=== PATIENT | female | born 1970 | race African-American/Black ===

== ENCOUNTER 2018-05-28 09:35 | Emergency (ER) | payer BC, OTHER ==
[2018-05-28 09:52] VITALS: BP 152/92; PULSE 83; TEMP 99.1; BMI 37.3
--- NOTE | 2018-05-28 11:11 | PDOC ---
History of Present Illness - General Chief Complaint: Back Pain Stated Complaint: BACK PAIN Time Seen by Provider: 05/28/18 10:19 History Source: Patient Exam Limitations: Clinical Condition - History of Present Illness Initial Comments: 05/28/18 11:09 Patient with no significant past medication present with complaint of persistent lower back pain radiating to right lower groin area for 5 days now. Patient is seen multiple times in urgent care for symptoms and treated for UTI and back spasm per patient report symptoms of persistent. Patient ALLERGIC to NSAIDs and has been taking muscle relaxer and stopped because of making her drowsy. Patient was seen in urgent care and report lab work and urinalysis done and labs was normal . no imaging done in urgent care. Timing/Duration: other (5 days) Past History - Past Medical History Allergies/Adverse Reactions: Allergies Allergy/AdvReac Type Severity Reaction Status Date / Time NSAIDS (Non-Steroidal Allergy Severe Difficulty Verified 05/28/18 09:46 Anti-Inflamma Breathing [Nsaids] Home Medications: Ambulatory Orders Levothyroxine [Synthroid -] 175 mcg PO DAILY 08/16/14 Diazepam 2 mg PO HS PRN #5 tablet MDD 1 05/04/16 Docusate Sodium [Colace] 100 mg PO BID 10 Days #20 capsule 05/28/18 Lidocaine 5% Patch [Lidoderm -] 1 patch TP DAILY PRN #10 patch 05/28/18 Oxycodone HCl/Acetaminophen [Percocet 5-325 mg Tablet] 1 tab PO Q4H PRN #6 tablet MDD 3 05/28/18 Cancer: Yes (RT breast ca) COPD: No Thyroid Disease: Yes (hypo) - Immunization History Immunization Up to Date: Yes - Suicide/Smoking/Psychosocial Hx Smoking Status: Yes Smoking History: Never smoked Have you smoked in the past 12 months: Yes Number of Cigarettes Smoked Daily: 10 Hx Alcohol Use: No Drug/Substance Use Hx: No Substance Use Type: None Review of Systems - Review of Systems Able to Perform ROS?: Yes Is the patient limited Romansh proficient: No Constitutional: No: Chills, Fever, Malaise, Weakness HEENTM: No: Symptoms Reported Respiratory: No: Symptoms reported Cardiac (ROS): No: Symptoms Reported ABD/GI: No: Symptoms Reported, Nausea, Vomiting : No: Burning, Dysuria, Discharge, Frequency, Flank Pain, Urgency Musculoskeletal: Yes: Back Pain (diffused lower back radiating to right groin), Muscle Pain (diffused lower back) Neurological: No: Numbness, Paresthesia, Tingling All Other Systems: Reviewed and Negative *Physical Exam - Vital Signs Last Vital Signs Temp Pulse Resp BP Pulse Ox 99.1 F 83 16 152/92 98 05/28/18 09:47 05/28/18 09:47 05/28/18 09:47 05/28/18 09:47 05/28/18 09:47 - Physical Exam Comments: 05/28/18 11:06 GENERAL: Well developed, well nourished. Awake and alert. No acute distress. CARDIOVASCULAR: Regular rate and rhythm. No murmurs, rubs, or gallops. PULMONARY: No evidence of respiratory distress. Lungs clear to auscultation bilaterally. No wheezing, rales or rhonchi. ABDOMINAL: Soft. Non-tender. Non-distended. No rebound or guarding. No organomegaly. Normoactive bowel sounds MUSCULOSKELETAL : moderate tenderness over posterior paravertebral muscle of lumbaosacral spine of L4-S2 on bilateral sides. No bony deformities EXTREMITIES: No cyanosis. No clubbing. No edema. No calf tenderness. SKIN: Warm and dry. Normal capillary refill. No rashes. No jaundice. NEUROLOGICAL: Alert, awake, appropriate. No motor deficits in the lower extremities. Gait is normal without ataxia. PSYCHIATRIC: Cooperative. Good eye contact. Appropriate mood and affect. General Appearance: Yes: Nourished, Appropriately Dressed. No: Apparent Distress Moderate Sedation - Procedure Monitoring Vital Signs: Procedure Monitoring Vital Signs Temperature 99.1 F 05/28/18 09:47 Pulse Rate 83 05/28/18 09:47 Respiratory Rate 16 05/28/18 09:47 Blood Pressure 152/92 05/28/18 09:47 O2 Sat by Pulse Oximetry (%) 98 05/28/18 09:47 ED Treatment Course - RADIOLOGY Radiology Studies Ordered: Category Date Time Status SPINE-LUMBAR SACRAL [RAD] Stat Radiology 05/28/18 10:27 Taken Medical Decision Making - Medical Decision Making 05/28/18 11:07 Patient with no significant past medication present with complaint of persistent lower back pain radiating to right lower groin area for 5 days now. Patient is seen multiple times in urgent care for symptoms and treated for UTI and back spasm per patient report symptoms of persistent. Patient ALLERGIC to NSAIDs and has been taking muscle relaxer and stopped because of making her drowsy. Exam significant for moderate diffuse tenderness over lower lumbar spine sacral area. Symptoms is likely back spasm with sciatica. X-ray of lumbosacral ordered. Treat based on imaging results 05/28/18 11:17 x-ray of lumbosacral shows no acute pathology except pelvic fecalith. pt staple for discharge on Percocet, lidocaine patchy and heat therapy with orthopedics follow-up *DC/Admit/Observation/Transfer Diagnosis at time of Disposition: Lumbago Qualifiers: Chronicity: acute Back pain laterality: bilateral Sciatica presence: without sciatica Qualified Code(s): M54.5 - Low back pain Constipated Qualifiers: Constipation type: unspecified constipation type Qualified Code(s): K59.00 - Constipation, unspecified - Discharge Dispostion Disposition: HOME Condition at time of disposition: Stable Decision to Admit order: No - Prescriptions Prescriptions: Docusate Sodium [Colace] 100 mg PO BID 10 Days #20 capsule Lidocaine 5% Patch [Lidoderm -] 1 patch TP DAILY PRN #10 patch PRN Reason: Back Pain Oxycodone HCl/Acetaminophen [Percocet 5-325 mg Tablet] 1 tab PO Q4H PRN #6 tablet MDD 3 PRN Reason: severe back pain - Referrals Referrals: Lilian Alvarado MD [Primary Care Provider] - Colton Castellano MD [Staff Physician] - - Patient Instructions Printed Discharge Instructions: Back Pain (Alternative Therapy), Low Back Pain Additional Instructions: take medications as prescribed. apply heat therapy to lower back 2-3times/day for 5-10mins as needed for pain. follow-up with referred orthopedics if symptoms persists for more than 3 days for possible MRI - Post Discharge Activity Forms/Work/School Notes: Back to Work
== END 2018-05-28 11:34 | disposition home or self-care (01) ==
LOC: JERFT 09:35
DX: M54.5 Low back pain (principal); K59.00 Constipation, unspecified
CPT/HCPCS: 72100-TC-FY; 99281-25

== ENCOUNTER 2020-02-04 13:50 | Inpatient (IN) | payer BC ==
--- NOTE | 2020-02-04 14:28 | PDOC ---
History of Present Illness - General Chief Complaint: Headache Stated Complaint: NUMBNESS ON LEFT SIDE Time Seen by Provider: 02/04/20 14:19 History Source: Patient - History of Present Illness Initial Comments: 02/04/20 15:04 49F w/hx hypothyroidism, remote hx migraine headaches, breast cancer s/p ubaldo lamb p/w acute onset headache at base of head. She reports that the pain started while sitting working on her iPad when the pain began. She reports "starting to breath quickly" when she began to experience perioral numbness (now resolved). She reports that the pain is different that her previous migraines, described as a tightness in the base of her skull. She reports a pressure in the back of her head, alongside feeling as though she cannot find her balance despite standing still. She reports feeling as though she is leaning to the right. She denies any fevers, chills, vision changes, confusion, weakness. Past History - Medical History Allergies/Adverse Reactions: Allergies Allergy/AdvReac Type Severity Reaction Status Date / Time NSAIDS (Non-Steroidal Allergy Severe Difficulty Verified 02/04/20 14:00 Anti-Inflamma Breathing [Nsaids] Home Medications: Ambulatory Orders Levothyroxine [Synthroid -] 175 mcg PO DAILY 08/16/14 Cancer: Yes (RT breast ca) COPD: No Thyroid Disease: Yes (hypo) - Reproductive History Is Patient Now?: No - Immunization History Immunization Up to Date: Yes - Psycho-Social/Smoking History Smoking Status: Yes Smoking History: Never smoked Have you smoked in the past 12 months: Yes Number of Cigarettes Smoked Daily: 10 - Substance Abuse Hx (Audit-C & DAST Scrn) How often the patient has a drink containing alcohol: Never Score: In Men: 4 or > Positive; In Women: 3 or > Positive: 0 Screen Result (Pos requires Nsg. Audit-10AR): Negative Review of Systems - Review of Systems Able to Perform ROS?: Yes Comments:: 02/04/20 15:32 GENERAL/CONSTITUTIONAL: No fever or chills. No weakness. HEAD, EYES, EARS, NOSE AND THROAT: No change in vision. No ear pain or discharge. No sore throat. CARDIOVASCULAR: No chest pain or shortness of breath RESPIRATORY: No cough, wheezing, or hemoptysis. GASTROINTESTINAL: No nausea, vomiting, diarrhea or constipation. GENITOURINARY: No dysuria, frequency, or change in urination. MUSCULOSKELETAL: No joint or muscle swelling or pain. No neck or back pain. SKIN: No rash NEUROLOGIC: Headache. No vertigo, loss of consciousness, or change in strengt h/sensation. ENDOCRINE: No increased thirst. No abnormal weight change HEMATOLOGIC/LYMPHATIC: No anemia, easy bleeding, or history of blood clots. ALLERGIC/IMMUNOLOGIC: No hives or skin allergy. *Physical Exam - Vital Signs Last Vital Signs Temp Pulse Resp BP Pulse Ox 97.9 F 65 18 144/87 96 02/04/20 14:01 02/04/20 14:01 02/04/20 14:02/04/20 14:02/04/20 14:01 - Physical Exam 02/04/20 15:32 GENERAL: Awake, alert, and fully oriented, in no acute distress HEAD: No signs of trauma, normocephalic, atraumatic EYES: PERRLA, EOMI, sclera anicteric, conjunctiva clear ENT: Auricles normal inspection, hearing grossly normal, nares patent, oropharynx clear without exudates. Moist mucosa NECK: Normal ROM, supple, no lymphadenopathy, JVD, or masses LUNGS: No distress, speaks full sentences, clear to auscultation bilaterally HEART: Regular rate and rhythm, normal S1 and S2, no murmurs, rubs or gallops, peripheral pulses normal and equal bilaterally. ABDOMEN: Soft, nontender, normoactive bowel sounds. No guarding, no rebound. No masses EXTREMITIES : Normal inspection, Normal range of motion, no edema. No clubbing or cyanosis NEUROLOGICAL: Cranial nerves II through XII grossly intact. Normal speech, normal gait, no focal sensorimotor deficits SKIN: Warm, Dry, normal turgor, no rashes or lesions noted ED Treatment Course - LABORATORY CBC & Chemistry Diagram: 02/04/20 15:50 02/04/20 15:50 Medical Decision Making - Medical Decision Making 02/04/20 15:33 49F w/hx hypothyroidism, prior breast CA s/p masectomy, previous migraines p/w acute onset occipital headache without vision changes, cranial nerve, strength, or sensory deficits. CVA unlikely, although headache is change from previous pattern. Perioral numbness likley secondary to hyperventillation. Plan: CT Head CBC CMP Troponin EKG CXR 1L NS 1g acetaminophen IV Dispo: Pending imaging, reassessment 02/04/20 19:[address] Saenz. Plan for CTA head, if negative but patient has persistent symptoms then plan for admission for neuro eval, MRI/MRA. Discharge - Discharge Information Problems reviewed: Yes Clinical Impression/Diagnosis: Ataxia - Follow up/Referral - Patient Discharge Instructions - Post Discharge Activity
[2020-02-04] MEDS ORDERED: ACETAMINOPHEN 1000 MG/100 ML VIAL (NON FORMULARY) IVPB ONE (14:46)
[2020-02-04] MEDS ORDERED: SODIUM CHLORIDE 1,000 ML IV STA (14:46)
[2020-02-04] MEDS ORDERED: ACETAMINOPHEN INJECTION 100 ML IVPB ONE (15:19)
[2020-02-04 16:04] LABS: HEMATOCRIT 37.2 % (32.4-45.2); HEMOGLOBIN 12.3 GM/dL (10.7-15.3); LYMPH % 28.6 % (8-40); MCH 28.9 pg (25.7-33.7); MEAN CELL VOLUME 87.6 fl (80-96); MEAN PLT VOLUME 8.4 fl (7.5-11.1); MONO % 4.8 % (3.8-10.2); NEUT % 60.6 % (42.8-82.8); PLATELET COUNT 238 K/MM3 (134-434); RBC 4.25 M/mm3 (3.60-5.2); RDW 17.4 % (11.6-15.6); WHITE BLOOD COUNT 5.5 K/mm3 (4.0-10.0)
--- NOTE | 2020-02-04 16:23 | PDOC ---
Documentation entered by Kate Joyner SCRIBE, acting as scribe for Ivy Hugo MD. Ivy Hugo MD: This documentation has been prepared by the jem, Kate Moscoso SCRIBE, under my direction and personally reviewed by me in its entirety. I confirm that the documentation accurately reflects all work, treatment, procedures, and medical decision making performed by me. Attending Attestation - Resident Resident Name: Dontae Barnhart - ED Attending Attestation I have performed the following: I have examined & evaluated the patient, The case was reviewed & discussed with the resident, I agree w/resident's findings & plan, Exceptions are as noted - HPI HPI: 02/04/20 15:23 The patient is a 49 year old female with a significant PMH of hypothyroidism, remote hx migraine headaches, breast cancer s/p masectomy who presents to the emergency department for evaluation of an abrupt onset of pressure at base of head. Associated with perioral numbness, sensation that she is having difficulty moving her jaw, feeling of weakness. The numbness has resolved. She states she has had intermittent sensation as if she is off balance, gait drifts to the right. She has had migraines in the past, but states they were completely different. She states that her migraines were associated with pain, photophobia, and phonophobia, none of which she has today. Allergies: NKA Social history: No reported hx of tobacco use, alcohol use or illicit drug use. PCP: Jenny - Physicial Exam PE: GENERAL: Awake, alert, and fully oriented, in no acute distress HEAD: No signs of trauma EYES: PERRLA, EOMI, sclera anicteric, conjunctiva clear ENT: Auricles normal inspection, hearing grossly normal, nares patent, oropharynx clear without exudates. Moist mucosa NECK: Normal ROM, supple, no lymphadenopathy, JVD, or masses LUNGS: Breath sounds equal, clear to auscultation bilaterally. No wheezes, and no crackles HEART: Regular rate and rhythm, normal S1 and S2, no murmurs, rubs or gallops ABDOMEN: Soft, nontender, normoactive bowel sounds. No guarding, no rebound. No masses EXTREMITIES: Normal range of motion, no edema. No clubbing or cyanosis. No cor ds, erythema, or tenderness NEUROLOGICAL: Cranial nerves II through XII grossly intact. Normal speech, normal gait. Motor and sensation intact SKIN: Warm, dry, normal turgor, no rashes or lesions noted. - Medical Decision Making 02/04/20 16:34 Pt with abrupt onset occipital pressure associated with perioral numbness, vertiginous symptoms. Will d/w neuro, will consider CTA head vs MRI to evaluate posterior circulation. Discharge - Discharge Information Problems reviewed: Yes Clinical Impression/Diagnosis: Ataxia Condition: Stable Disposition: HOME - Follow up/Referral - Patient Discharge Instructions - Post Discharge Activity
[2020-02-04 16:45] LABS: ALBUMIN 3.7 g/dl (3.4-5.0); ALK PHOS 101 U/L (45-117); ANION GAP 6 MMOL/L (8-16); BILIRUBIN,TOTAL 0.2 mg/dL (0.2-1); CALCIUM 8.7 mg/dL (8.5-10.1); CHLORIDE 109 mmol/L (98-107); CO2 26 mmol/L (21-32); CREATININE 0.9 mg/dL (0.55-1.3); GLUCOSE,RANDOM 85 mg/dL (74-106); POTASSIUM 3.9 mmol/L (3.5-5.1); SGOT/AST 15 U/L (15-37); SGPT/ALT 16 U/L (13-61); SODIUM 141 mmol/L (136-145); TOT PROT 7.4 g/dl (6.4-8.2)
--- NOTE | 2020-02-04 18:10 | CON.NEURO ---
Consult - Past Medical History ...LMP: 01/27/08 ...: No - Alcohol/Substance Use Hx Alcohol Use: No - Smoking History Smoking history: Never smoked Have you smoked in the past 12 months: Yes Aproximately how many cigarettes per day: 10 Home Medications - Allergies Allergies/Adverse Reactions: Allergies Allergy/AdvReac Type Severity Reaction Status Date / Time NSAIDS (Non-Steroidal Allergy Severe Difficulty Verified 02/04/20 14:00 Anti-Inflamma Breathing [Nsaids] - Home Medications Home Medications: Ambulatory Orders Levothyroxine [Synthroid -] 175 mcg PO DAILY 08/16/14 Physical Exam-Neuro Vital Signs: Vital Signs Temperature 97.9 F 02/04/20 14:01 Pulse Rate 65 02/04/20 14:01 Respiratory Rate 18 02/04/20 14:01 Blood Pressure 144/87 02/04/20 14:01 O2 Sat by Pulse Oximetry (%) 96 02/04/20 14:01 Labs: CBC, BMP 02/04/20 15:50 02/04/20 15:50 Assessment/Plan cc Acute pressure like sensation in back of her head HPI 49 year old female history of hypothyroidism , breast cancer , under remission. She has diagnosis of Pseudo tumor cerebri, but not being treated. years ago, she has migraine bu tnot recenlty. Today she came with pressure and sometihing constricting sesation in back of her head. She slept well, denies missing marj, stress or fever or trauma. There is no focal neurological syptoms PMH as above Allergies/Adverse Reactions: Allergies Allergy/AdvReac Type Severity Reaction Status Date / Time NSAIDS (Non-Steroidal Allergy Severe Difficulty Verified 02/04/20 14:00 Anti-Inflamma Breathing [Nsaids] Home Medications: Levothyroxine [Synthroid -] 175 mcg PO DAILY 08/16/14 ROS,FH,SH reviewed in chart NEUROLOGICAL EXAMINATION Alert oriented x 3, afebrile , neck is suple vss eomi, pupils reactive no face asymmetry, face sensation is normal, vf normal by confrontation motor 5/5 all ext sensation is normal reflex are normal fts, hts normal ct head is normal for acute findings, there is nonspecific volume loss in occipital area Assessment/Plan acute tension headhace, describes pressure like sensation. normal neuro exam, no evidence of nekc stiffness, unlikley to be sah or meningitis Plan: give nsaid, benadyrl and reglan iv once - cta is being planned, if normal, can be discharged home - follow up optho regarding ? pseudotumor cerebri - follow up with neurologist Thanking you so much Gerry Saenz MD
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
--- NOTE | 2020-02-04 20:06 | HP ---
CHIEF COMPLAINT: Posterior Cranial pressure PCP: Lilian de dios [facility] HISTORY OF PRESENT ILLNESS: Ms. Qiu is a 49F w/ pmh of hypothyroidism, remote hx migraine headaches, breast cancer s/p masectomy complete reaction, chemotherapy 2007, spinal tap last year, felt relief after spinal. Pseudo tumor cerebri (untreated) who presents to the emergency department for evaluation of an abrupt onset of pressure at base of head. The patient reported a sudden onset of squeezing posterior head pressure while doing dishes. The patient reports concomitant feeling of being unbalance. The patient adamantly denies the room spinning or weakness. Symptoms first started few months ago and the episodes would usually last about 15-20 min. The patient has also felt her lower face going numb, as if someone tried closing her mouth. The patient denied changes or slurring of speech. The patient also denied weakness in upper/lower extremities. Ms. Qiu had recieved a lumbar puncture for her pseudotumor cerebri. The patient reports being given Topirimate 25, but has not been compliant x1 month despite advice by Neurologist(Shirley). 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 Allergies NSAIDS (Non-Steroidal Anti-Inflamma [Nsaids] Allergy (Severe, Verified 02/04/20 14:00) Difficulty Breathing HOME MEDICATIONS: Home Medications Medication Instructions Recorded Levothyroxine [Synthroid -] 175 mcg PO DAILY 08/16/14 REVIEW OF SYSTEMS CONSTITUTIONAL: Absent: fever, chills, diaphoresis, generalized weakness, malaise, loss of appetite, weight change HEENT: Absent: rhinorrhea, nasal congestion, throat pain, throat swelling, difficulty swallowing, mouth swelling, ear pain, eye pain, visual changes CARDIOVASCULAR: Absent: chest pain, syncope, palpitations, irregular heart rate, lightheadedness, peripheral edema RESPIRATORY: Absent: cough, shortness of breath, dyspnea with exertion, orthopnea, wheezing, stridor, hemoptysis GASTROINTESTINAL: Absent: abdominal pain, abdominal distension, nausea, vomiting, diarrhea, constipation, melena, hematochezia NEUROLOGIC: Absent: headache, focal weakness or paresthesias, dizziness, unsteady gait, seizure, mental status changes, bladder or bowel incontinence PHYSICAL EXAMINATION Vital Signs - 24 hr 02/04/20 14:01 Temperature 97.9 F Pulse Rate 65 Respiratory 18 Rate Blood Pressure 144/87 O2 Sat by Pulse 96 Oximetry (%) GENERAL: Awake, alert, and fully oriented, in no acute distress. EYES: Pupils equal, round and reactive to light, extraocular movements intact, sclera anicteric, conjunctiva clear. No lid lag. NECK: Normal range of motion, supple without lymphadenopathy, JVD, or masses. LUNGS: Breath sounds equal, clear to auscultation bilaterally. No wheezes, and no crackles. No accessory muscle use. HEART: Regular rate and rhythm, normal S1 and S2 without murmur, rub or gallop. ABDOMEN: Soft, nontender, not distended, normoactive bowel sounds, no guarding, no rebound, no masses. No hepatomegaly or splenomegaly. MUSCULOSKELETAL: Normal range of motion at all joints. No bony deformities or tenderness. No CVA tenderness. UPPER EXTREMITIES: 2+ pulses, warm, well-perfused. No cyanosis. No clubbing. No peripheral edema. LOWER EXTREMITIES: 2+ pulses, warm, well-perfused. No calf tenderness. No peripheral edema. NEUROLOGICAL: Cranial nerves II-XII intact. Normal speech. Normal gait. Laboratory Results - last 24 hr 02/04/20 02/04/20 02/04/20 15:50 15:50 15:50 WBC 5.5 RBC 4.25 Hgb 12.3 Hct 37.2 MCV 87.6 MCH 28.9 MCHC 33.0 RDW 17.4 H Plt Count 238 MPV 8.4 Absolute Neuts (auto) 3.3 Neutrophils % 60.6 Lymphocytes % 28.6 Monocytes % 4.8 Eosinophils % 5.0 H Basophils % 1.0 D Nucleated RBC % 0 Sodium 141 Potassium 3.9 Chloride 109 H Carbon Dioxide 26 Anion Gap 6 L BUN 9.0 Creatinine 0.9 Est GFR (CKD-EPI)AfAm 86.41 Est GFR (CKD-EPI)NonAf 74.55 Random Glucose 85 Calcium 8.7 Total Bilirubin 0.2 AST 15 ALT 16 Alkaline Phosphatase 101 Troponin I < 0.02 Total Protein 7.4 Albumin 3.7 Serum , Qual Negative ASSESSMENT/PLAN: Ms. Qiu is a 49F w/ pmh of hypothyroidism, remote hx migraine headaches, breast cancer s/p masectomy complete reaction, chemotherapy 2007, spinal tap last year, felt relief after spinal. Pseudo tumor cerebri (untreated) who presents to the emergency department for evaluation of an abrupt onset of pressure at base of head. # Advanced migraine - admit to telemetry - po tylenol - vitals q12 - follow labs - ekg - sinus gregg 55 - Utox - cxr - ua #ataxia - fall risk - ct scan - negative for acute pathology - Incidental finding of pulmonary artery #hypothyroidism - synthroid 175mcg #DVT ppx - lovenox 40 sq ATTENDING PHYSICIAN STATEMENT I saw and evaluated the patient. I reviewed the resident's note and discussed the case with the resident. I agree with the resident's findings and plan as documented. SUBJECTIVE: OBJECTIVE: ASSESSMENT AND PLAN:
[2020-02-04] MEDS ORDERED: ACETAMINOPHEN 325 MG TABLET (FP) PO PRN (22:02)
[2020-02-05 01:45] LABS: URINE APPEARANCE Clear; URINE BILIRUBIN Negative (NEGATIVE); URINE COLOR Yellow; URINE GLUCOSE (UA) Negative (NEGATIVE); URINE KETONE Negative (NEGATIVE); URINE LEUK ESTERASE 1+ (NEGATIVE); URINE NITRITE Negative (NEGATIVE); URINE PROTEIN Negative (NEGATIVE); URINE UROBILINOGEN 0.2 mg/dL (0.2-1.0)
[2020-02-05 01:52] LABS: COCAINE, UR NEGATIVE ng/ml (CUTOFF=300); OPIATES, URI NEGATIVE ng/ml (CUTOFF=300); PHENCYCLIDINE,URINE NEGATIVE ng/ml (CUTOFF=25); URINE BARBITURATES NEGATIVE ng/ml (CUTOFF=200)
[2020-02-05 01:59] LABS: METHADONE, UR NEGATIVE ng/ml (CUTOFF=300); URINE AMPHETAMINES NEGATIVE ng/ml (CUTOFF=500); URINE BENZODIAZEPINES NEGATIVE ng/ml (CUTOFF=200)
[2020-02-05 02:39] LABS: EPI CELLS MODERATE /uL (0-25.1)
[2020-02-05 03:18] VITALS: BMI 36.7
[2020-02-05] MEDS ORDERED: LEVOTHYROXINE NA 75 MCG TABLET (FP) ONE (05:19)
[2020-02-05] MEDS ORDERED: LEVOTHYROXINE NA 100 MCG TABLET (FP) ONE (05:19)
[2020-02-05 06:29] LABS: BASO % 1.1 % (0-2.0); EOS % 6.2 % (0-4.5); HEMATOCRIT 36.8 % (32.4-45.2); HEMOGLOBIN 12.3 GM/dL (10.7-15.3); LYMPH % 43.4 % (8-40); MCH 29.1 pg (25.7-33.7); MCHC 33.5 g/dl (32.0-36.0); MEAN CELL VOLUME 86.7 fl (80-96); MEAN PLT VOLUME 8.6 fl (7.5-11.1); MONO % 5.9 % (3.8-10.2); NEUT % 43.4 % (42.8-82.8); PLATELET COUNT 247 K/MM3 (134-434); RBC 4.25 M/mm3 (3.60-5.2); RDW 17.4 % (11.6-15.6); WHITE BLOOD COUNT 5.6 K/mm3 (4.0-10.0)
[2020-02-05 07:00] LABS: ALBUMIN 3.7 g/dl (3.4-5.0); BILIRUBIN,TOTAL 0.4 mg/dL (0.2-1); BLOOD UREA NITROGEN 7.5 mg/dL (7-18); CALCIUM 8.6 mg/dL (8.5-10.1); CREATININE 0.9 mg/dL (0.55-1.3); MAGNESIUM 2.3 mg/dL (1.8-2.4); PHOSPHOROUS 3.6 mg/dL (2.5-4.9); POTASSIUM 3.6 mmol/L (3.5-5.1); TOT PROT 7.3 g/dl (6.4-8.2)
[2020-02-05] MEDS ORDERED: LEVOTHYROXINE 100 MCG, LEVOTHYROXINE 75 MCG PO SCH (07:00)
[2020-02-05] MEDS ORDERED: LEVOTHYROXINE NA 150 MCG TABLET PO SCH (10:00)
[2020-02-05] MEDS ORDERED: ENOXAPARIN NA (PORCINE) 40 MG/0.4 ML DISP.SYRIN SQ SCH (10:00)
[2020-02-05 10:32] VITALS: BP 139/80; PULSE 66; TEMP 97.6
--- NOTE | 2020-02-05 10:45 | PN ---
Physical Exam: SUBJECTIVE: Patient seen and examined at bedside. The patient reports a mild headache. The back of her neck is painful to palpation. The patient denies dysuria, bowel/bladder problems, fever/chills, vision changes, weakness, or numbness. OBJECTIVE: Vital Signs Period Temp Pulse Resp BP Sys/Barrett Pulse Ox Last 24 Hr 97.6 F-98.2 F 59-90 17-20 126-158/70-95 95-100 GENERAL: The patient is awake, alert, and fully oriented, in no acute distress. HEAD: Normal with no signs of trauma. EYES: PERRL, extraocular movements intact, sclera anicteric, conjunctiva clear. No ptosis. ENT: Ears normal, nares patent, oropharynx clear without exudates, moist mucous membranes. Palpation of based of head/cervical spine elicits pain. NECK: Trachea midline, full range of motion, supple. LUNGS: Breath sounds equal, clear to auscultation bilaterally, no wheezes, no crackles, no accessory muscle use. HEART: Regular rate and rhythm, S1, S2 without murmur, rub or gallop. ABDOMEN: Soft, nontender, nondistended, normoactive bowel sounds, no guarding, no rebound, no masses. EXTREMITIES: 2+ pulses, warm, well-perfused, no edema. NEUROLOGICAL: Cranial nerves II through XII grossly intact. Normal speech, gait not observed. finger nose finger test negative. No tremors. Muscle strength 5/5 b/l UEs and LEs. No numbness in face, UEs, or LEs b/l. PSYCH: Normal mood, normal affect. SKIN: Warm, dry, normal turgor, no rashes or lesions noted Laboratory Results - last 24 hr 02/04/20 02/04/20 02/04/20 15:50 15:50 15:50 WBC 5.5 RBC 4.25 Hgb 12.3 Hct 37.2 MCV 87.6 MCH 28.9 MCHC 33.0 RDW 17.4 H Plt Count 238 MPV 8.4 Absolute Neuts (auto) 3.3 Neutrophils % 60.6 Lymphocytes % 28.6 Monocytes % 4.8 Eosinophils % 5.0 H Basophils % 1.0 D Nucleated RBC % 0 Sodium 141 Potassium 3.9 Chloride 109 H Carbon Dioxide 26 Anion Gap 6 L BUN 9.0 Creatinine 0.9 Est GFR (CKD-EPI)AfAm 86.41 Est GFR (CKD-EPI)NonAf 74.55 Random Glucose 85 Calcium 8.7 Phosphorus Magnesium Total Bilirubin 0.2 AST 15 ALT 16 Alkaline Phosphatase 101 Troponin I < 0.02 Total Protein 7.4 Albumin 3.7 Serum , Qual Negative Urine Color Urine Appearance Urine pH Ur Specific [place] Urine Protein Urine Glucose (UA) Urine Ketones Urine Blood Urine Nitrite Urine Bilirubin Urine Urobilinogen Ur Leukocyte Esterase Urine WBC (Auto) U Epithel Cells (Auto) Opiates Screen Methadone Screen Barbiturate Screen Phencyclidine Screen Ur Amphetamines Screen MDMA (Ecstasy) Screen Benzodiazepines Screen Cocaine Screen U Marijuana (THC) Screen 02/05/20 02/05/20 02/05/20 01:25 01:25 05:15 WBC 5.6 RBC 4.25 Hgb 12.3 Hct 36.8 MCV 86.7 MCH 29.1 MCHC 33.5 RDW 17.4 H Plt Count 247 MPV 8.6 Absolute Neuts (auto) 2.4 Neutrophils % 43.4 D Lymphocytes % 43.4 H D Monocytes % 5.9 Eosinophils % 6.2 H Basophils % 1.1 Nucleated RBC % 0 Sodium Potassium Chloride Carbon Dioxide Anion Gap BUN Creatinine Est GFR (CKD-EPI)AfAm Est GFR (CKD-EPI)NonAf Random Glucose Calcium Phosphorus Magnesium Total Bilirubin AST ALT Alkaline Phosphatase Troponin I Total Protein Albumin Serum , Qual Urine Color Yellow Urine Appearance Clear Urine pH 7.0 Ur Specific [place] 1.020 Urine Protein Negative Urine Glucose (UA) Negative Urine Ketones Negative Urine Blood Negative Urine Nitrite Negative Urine Bilirubin Negative Urine Urobilinogen 0.2 Ur Leukocyte Esterase 1+ H Urine WBC (Auto) 6-10 U Epithel Cells (Auto) Moderate Opiates Screen Negative Methadone Screen Negative Barbiturate Screen Negative Phencyclidine Screen Negative Ur Amphetamines Screen Negative MDMA (Ecstasy) Screen Negative Benzodiazepines Screen Negative Cocaine Screen Negative U Marijuana (THC) Screen Negative 02/05/20 05:15 WBC RBC Hgb Hct MCV MCH MCHC RDW Plt Count MPV Absolute Neuts (auto) Neutrophils % Lymphocytes % Monocytes % Eosinophils % Basophils % Nucleated RBC % Sodium 139 Potassium 3.6 Chloride 108 H Carbon Dioxide 26 Anion Gap 5 L BUN 7.5 Creatinine 0.9 Est GFR (CKD-EPI)AfAm 86.41 Est GFR (CKD-EPI)NonAf 74.55 Random Glucose 86 Calcium 8.6 Phosphorus 3.6 Magnesium 2.3 Total Bilirubin 0.4 AST 14 L ALT 16 Alkaline Phosphatase 89 Troponin I Total Protein 7.3 Albumin 3.7 Serum , Qual Urine Color Urine Appearance Urine pH Ur Specific [place] Urine Protein Urine Glucose (UA) Urine Ketones Urine Blood Urine Nitrite Urine Bilirubin Urine Urobilinogen Ur Leukocyte Esterase Urine WBC (Auto) U Epithel Cells (Auto) Opiates Screen Methadone Screen Barbiturate Screen Phencyclidine Screen Ur Amphetamines Screen MDMA (Ecstasy) Screen Benzodiazepines Screen Cocaine Screen U Marijuana (THC) Screen Active Medications Generic Name Dose Route Start Last Admin Trade Name Freq PRN Reason Stop Dose Admin Acetaminophen 650 mg 02/04/20 22:02 02/05/20 06:00 Tylenol - PO 650 mg Q6H PRN Administration HEADACHE Enoxaparin Sodium 40 mg 02/05/20 10:00 02/05/20 09:34 Lovenox - SQ 40 mg DAILY MYRON Administration Levothyroxine Sodium 100 mcg/ 175 mcg 02/05/20 07:00 02/05/20 06:00 Levothyroxine Sodium 75 mcg PO 175 mcg DAILY@0700 MYRON Administration ASSESSMENT/PLAN: 49 year old female patient with past medical history that includes hypothyroidism, migraines, pseudotumor cerbri, and right breast cancer, who presented to the ED with occipital pressure with perioral numbness. 1. Headache 2/2 cervicogenic headache vs migraine - pain on palpation of back of head/cervical spine - Neuro cleared patient for discharge if CTA is normal - CTA shows dilated pulm artery suggestive of possible pulm HTN 2. Hypothyroidism - Levothyroxine #FEN - Monitoring electrolytes, Regular diet DVT PPx - Lovenox Visit type - Emergency Visit Emergency Visit: Yes ED Registration Date: 02/04/20 Care time: The patient presented to the Emergency Department on the above date and was hospitalized for further evaluation of their emergent condition. - New Patient This patient is new to me today: Yes Date on this admission: 02/05/20 - Critical Care Critical Care patient: No - Discharge Referral Referred to [facility] Med P.C.: No ATTENDING PHYSICIAN STATEMENT I saw and evaluated the patient. I reviewed the resident's note and discussed the case with the resident. I agree with the resident's findings and plan as documented. SUBJECTIVE: OBJECTIVE: ASSESSMENT AND PLAN:
--- NOTE | 2020-02-05 13:20 | PN ---
Progress Note (short form) - Note Progress Note: cc Acute pressure like sensation in back of her head HPI 49 year old female history of hypothyroidism , breast cancer , under remission. She has diagnosis of Pseudo tumor cerebri, but not being treated. years ago, she has migraine bu tnot recenlty. Today she came with pressure and sometihing constricting sesation in back of her head. She slept well, denies missing marj, stress or fever or trauma. feeling better, still have pressure like sensation NEUROLOGICAL EXAMINATION Alert oriented x 3, afebrile , neck is suple vss mild tenderness in back of her neck eomi, pupils reactive no face asymmetry, face sensation is normal, vf normal by confrontation motor 5/5 all ext sensation is normal reflex are normal fts, hts normal ct head is normal for acute findings, there is nonspecific volume loss in occipital area Assessment/Plan acute tension headhace, describes pressure like sensation. normal neuro exam, no evidence of nekc stiffness, unlikley to be sah or meningitis Plan: give nsaid, benadyrl and reglan iv once - cta of neck is normal, can be discharged home - follow up optho and neurologist regarding ? pseudotumor cerebri Thanking you so much Gerry Saenz MD
--- NOTE | 2020-02-05 15:15 | PN ---
Teaching Attending Note Name of Resident: Ced Suresh ATTENDING PHYSICIAN STATEMENT I saw and evaluated the patient. I reviewed the resident's note and discussed the case with the resident. I agree with the resident's findings and plan as documented. SUBJECTIVE: seen around 10 am No fever or chills.painin posterior head is better today , no numbness tingling or weakness, . the tightness sensationi her jaws resolved yesterday . the pressure/pain in her scalp is intermittent and happened previously ( lasted fro 15-30 min each tome, but now persisted) . she has stresses in llife. she denies any visual changes, no head trauma. no imbalance but some times while standing by the sink, she feels like she was going to loose her balance for few seconds and then she is fine . No urianry sx OBJECTIVE: NAD, awake, alert, cooperative. pleasant MMM, no facial doopr. CV: RRR, no MRG Lungs: CTAB Ext; No edema or erythema on upper or lower extremities. Neuro : EOMI, round pupils, no facial droop, tongue at mid line, strength 5/5 in upper or lower extremities proximally and distally. sensation to light touch nl. reflexes 1+ biceps and knee jerk b/l. nose to finger is nL. Romberg is NL. MS: TTP on b/l trapezius muscles and posterior scalp . No neck stiffness ASSESSMENT AND PLAN: 49 y/o lady with h/o migraines, pseudotumor cerebri, s/p LP, hypothyroism , who presented with posterior SHARMA . 1- Occipital SHARMA: likely due to muscle spasm and tension . ? tension SHARMA . d/w Dr. Saenz, pseudotumor cerebri is unlikely contributing to her presentation . No Recs for further imaging - she can follow with her neurologist. she wants to follow with dr. Saenz instead. - sx improved . Nl neuro exam, no alarming sings 2- h/o hypothyroidism: cont synthroid 3- No urinary sx. no treatment for asymptomatic pyuria 4- On xray , large heart ( not changed from prior imaging ) . On CT possible pulm artery enlargement. will refer to card as out ptfor further w/u ( echo to begin eith ) dc home . d/w patient and she agrees with plan
--- NOTE | 2020-02-05 16:14 | DS ---
Physical Exam: SUBJECTIVE: Patient seen and examined at bedside. The patient reports a mild headache. The back of her neck is painful to palpation. The patient denies dysuria, bowel/bladder problems, fever/chills, vision changes, weakness, or numbness. OBJECTIVE: Vital Signs Period Temp Pulse Resp BP Sys/Barrett Pulse Ox Last 24 Hr 97.6 F-98.2 F 59-90 17-20 126-158/70-95 95-100 PHYSICAL EXAM GENERAL: The patient is awake, alert, and fully oriented, in no acute distress. HEAD: Normal with no signs of trauma. EYES: PERRL, extraocular movements intact, sclera anicteric, conjunctiva clear. No ptosis. ENT: Ears normal, nares patent, oropharynx clear without exudates, moist mucous membranes. Palpation of based of head/cervical spine elicits pain. NECK: Trachea midline, full range of motion, supple. LUNGS: Breath sounds equal, clear to auscultation bilaterally, no wheezes, no crackles, no accessory muscle use. HEART: Regular rate and rhythm, S1, S2 without murmur, rub or gallop. ABDOMEN: Soft, nontender, nondistended, normoactive bowel sounds, no guarding, no rebound, no masses. EXTREMITIES: 2+ pulses, warm, well-perfused, no edema. NEUROLOGICAL: Cranial nerves II through XII grossly intact. Normal speech, gait not observed. finger nose finger test negative. No tremors. Muscle strength 5/5 b/l UEs and LEs. No numbness in face, UEs, or LEs b/l. PSYCH: Normal mood, normal affect. SKIN: Warm, dry, normal turgor, no rashes or lesions noted LABS Laboratory Results - last 24 hr 02/04/20 02/04/20 02/04/20 15:50 15:50 15:50 WBC 5.5 RBC 4.25 Hgb 12.3 Hct 37.2 MCV 87.6 MCH 28.9 MCHC 33.0 RDW 17.4 H Plt Count 238 MPV 8.4 Absolute Neuts (auto) 3.3 Neutrophils % 60.6 Lymphocytes % 28.6 Monocytes % 4.8 Eosinophils % 5.0 H Basophils % 1.0 D Nucleated RBC % 0 Sodium 141 Potassium 3.9 Chloride 109 H Carbon Dioxide 26 Anion Gap 6 L BUN 9.0 Creatinine 0.9 Est GFR (CKD-EPI)AfAm 86.41 Est GFR (CKD-EPI)NonAf 74.55 Random Glucose 85 Calcium 8.7 Phosphorus Magnesium Total Bilirubin 0.2 AST 15 ALT 16 Alkaline Phosphatase 101 Troponin I < 0.02 Total Protein 7.4 Albumin 3.7 Serum , Qual Negative Urine Color Urine Appearance Urine pH Ur Specific [place] Urine Protein Urine Glucose (UA) Urine Ketones Urine Blood Urine Nitrite Urine Bilirubin Urine Urobilinogen Ur Leukocyte Esterase Urine WBC (Auto) U Epithel Cells (Auto) Opiates Screen Methadone Screen Barbiturate Screen Phencyclidine Screen Ur Amphetamines Screen MDMA (Ecstasy) Screen Benzodiazepines Screen Cocaine Screen U Marijuana (THC) Screen 02/05/20 02/05/20 02/05/20 01:25 01:25 05:15 WBC 5.6 RBC 4.25 Hgb 12.3 Hct 36.8 MCV 86.7 MCH 29.1 MCHC 33.5 RDW 17.4 H Plt Count 247 MPV 8.6 Absolute Neuts (auto) 2.4 Neutrophils % 43.4 D Lymphocytes % 43.4 H D Monocytes % 5.9 Eosinophils % 6.2 H Basophils % 1.1 Nucleated RBC % 0 Sodium Potassium Chloride Carbon Dioxide Anion Gap BUN Creatinine Est GFR (CKD-EPI)AfAm Est GFR (CKD-EPI)NonAf Random Glucose Calcium Phosphorus Magnesium Total Bilirubin AST ALT Alkaline Phosphatase Troponin I Total Protein Albumin Serum , Qual Urine Color Yellow Urine Appearance Clear Urine pH 7.0 Ur Specific [place] 1.020 Urine Protein Negative Urine Glucose (UA) Negative Urine Ketones Negative Urine Blood Negative Urine Nitrite Negative Urine Bilirubin Negative Urine Urobilinogen 0.2 Ur Leukocyte Esterase 1+ H Urine WBC (Auto) 6-10 U Epithel Cells (Auto) Moderate Opiates Screen Negative Methadone Screen Negative Barbiturate Screen Negative Phencyclidine Screen Negative Ur Amphetamines Screen Negative MDMA (Ecstasy) Screen Negative Benzodiazepines Screen Negative Cocaine Screen Negative U Marijuana (THC) Screen Negative 02/05/20 05:15 WBC RBC Hgb Hct MCV MCH MCHC RDW Plt Count MPV Absolute Neuts (auto) Neutrophils % Lymphocytes % Monocytes % Eosinophils % Basophils % Nucleated RBC % Sodium 139 Potassium 3.6 Chloride 108 H Carbon Dioxide 26 Anion Gap 5 L BUN 7.5 Creatinine 0.9 Est GFR (CKD-EPI)AfAm 86.41 Est GFR (CKD-EPI)NonAf 74.55 Random Glucose 86 Calcium 8.6 Phosphorus 3.6 Magnesium 2.3 Total Bilirubin 0.4 AST 14 L ALT 16 Alkaline Phosphatase 89 Troponin I Total Protein 7.3 Albumin 3.7 Serum , Qual Urine Color Urine Appearance Urine pH Ur Specific [place] Urine Protein Urine Glucose (UA) Urine Ketones Urine Blood Urine Nitrite Urine Bilirubin Urine Urobilinogen Ur Leukocyte Esterase Urine WBC (Auto) U Epithel Cells (Auto) Opiates Screen Methadone Screen Barbiturate Screen Phencyclidine Screen Ur Amphetamines Screen MDMA (Ecstasy) Screen Benzodiazepines Screen Cocaine Screen U Marijuana (THC) Screen HOSPITAL COURSE: Date of Admission:02/04/20 49 year old female patient with past medical history that includes hypothyroidism, migraines, pseudotumor cerebri, and right breast cancer, who presented to the ED with occipital pressure with perioral numbness. The patient reported a sudden onset of squeezing posterior head pressure while doing dishes. The patient reported concomitant feeling of being unbalanced. The patient adamantly denied the room spinning or weakness. Symptoms first started a few months ago and the episodes would usually last about 15-20 min. The patient has also felt her lower face going numb, as if someone tried closing her mouth. The patient denied changes or slurring of speech. The patient also denied weakness in upper/lower extremities. The patient had pain to palpation of the back of her head, cervical spine, and trapezius muscle, so musculoskeletal etiology for her pain was suspected. After examining the patient, Neurology recommended discharge if her CTA is normal. CTA came back showing a dilated pulmonary artery suggestive of possible pulmonary HTN. The patient was discharged with instructions to follow up with Neurology, Opthamology (for her pseudotumor cerebri), Pulmonology (for her Pulmonary HTN on CTA), Cardiology (due to a large heart on X-Ray), and her Primary Care physician. Date of Discharge: 02/05/20 Minutes to complete discharge: 40 Discharge Summary Problems reviewed: Yes Reason For Visit: VESTIBULAR DYSFUNCTION Current Active Problems Headache (Acute) Condition: Stable - Instructions Diet, Activity, Other Instructions: You were admitted to the hospital because of pressure in the back of your head. We evaluated you with lab work, blood work, and imaging, including a CAT scan, which showed no abnormalities, and had the Neurologist see you, who recommended that you are stable for discharge home. On chest X Ray, your heart was found to be enlarged. While this is not an emergency, we would like you to follow up with a fabricator artificial breast for further workup. A referral has been provided. Imaging Findings A CAT scan found that your artery in your lung is dilated. Please follow up with a Government Employee about this finding. ( you might have elavtion in pulmonary pressure ) Medications Please continue all of your medications as previously prescribed. Follow ups Please follow up with the Neurologist Dr. Gerry Saenz within 1 week. Please follow up with the Opthamologist Dr. Doug Hickman within 1 week regarding your Pseudotumor Cerebri. Please follow up with the Government Employee Dr. Jeanmarie Bentley within 1 week about the CAT scan finding of your lung. Please follow up with the [employer] Dr. Atkinson within 1 week about the X Ray findings Please follow up with your Primary Care physician Dr. Lilian Alvarado, within 1 week. If you experience worsening symptoms, chest pain, shortness of breath, abdominal pain, or worsening of your condition, please come to the emergency room or call 911. Referrals: Gerry Saenz MD [Staff Physician] - 1 Week Minor Atkinson MD [Staff Physician] - 2 Weeks (Cardiomegaly on CXR) Doug Hickman MD [Staff Physician] - 2 Weeks (pseudotumor cerebri) Jeanmarie Bentley MD, MD [Staff Physician] - 1 Week (Dilated pulm artery on ct suggestive of pulm htn) Lilian Alvarado MD [Primary Care Provider] - 1 Week Disposition: HOME - Home Medications Comprehensive Discharge Medication List: Ambulatory Orders Levothyroxine [Synthroid -] 175 mcg PO DAILY 08/16/14 This patient is new to me today: Yes Date on this admission: 02/05/20 Emergency Visit: Yes ED Registration Date: 02/04/20 Care time: The patient presented to the Emergency Department on the above date and was hospitalized for further evaluation of their emergent condition. Critical Care patient: No - Discharge Referral Referred to [facility] Med P.C.: No ATTENDING PHYSICIAN STATEMENT I saw and evaluated the patient. I reviewed the resident's note and discussed the case with the resident. I agree with the resident's findings and plan as documented. SUBJECTIVE: OBJECTIVE: ASSESSMENT AND PLAN:
--- NOTE | 2020-02-07 22:01 | EKG ---
Test Reason : Blood Pressure : / mmHG Vent. Rate : 055 BPM Atrial Rate : 055 BPM P-R Int : 166 ms QRS Dur : 086 ms QT Int : 498 ms P-R-T Axes : 055 007 029 degrees QTc Int : 476 ms SINUS BRADYCARDIA POSSIBLE LEFT ATRIAL ENLARGEMENT BORDERLINE ECG NO PREVIOUS ECGS AVAILABLE Confirmed by LEONOR CHICAS MD ([id number]) on 02/07/2020 10:00:37 PM Referred By: Confirmed By:LEONOR CHICAS MD
== END 2020-02-05 17:30 | disposition home or self-care (01) | DRG 103 ==
LOC: JER 13:50 → JERBED 19:22 → J4S 02-05 02:33
PROVIDERS: ADMIT Internal Medicine; ATTEND Internal Medicine
DX: G44.209 Tension-type headache, unspecified, not intractable (principal); H81.90 Unspecified disorder of vestibular function, unspecified ear; E03.9 Hypothyroidism, unspecified; E66.9 Obesity, unspecified; Z68.36 Body mass index [BMI] 36.0-36.9, adult; R00.1 Bradycardia, unspecified; G93.2 Benign intracranial hypertension; G43.909 Migraine, unspecified, not intractable, without status migrainosus; R27.0 Ataxia, unspecified; Z85.3 Personal history of malignant neoplasm of breast
CPT/HCPCS: 36415; 70450-TC; 70496-TC; 70498-TC; 71045-TC-FY; 80053; 80307; 81003; 83735; 84100; 84484; 84703; 85025; 93005; 93010; 99285-25; J0131; U0003

== ENCOUNTER 2020-03-12 14:01 | Emergency (ER) | payer BC ==
[2020-03-12 14:10] VITALS: TEMP 97; BMI 36.9
--- OUTSIDE RECORDS SUMMARY | 2020-03-12 14:22 | XMS ---
:1970 Author Organization [facility] Care Team Providers Name Role Phone Zander Escamilla MD Unavailable Unavailable ED STAFF PHYSICIAN Unavailable Unavailable ED STAFF PHYSICIAN, STAFF Unavailable Unavailable ZUNASSIGNED Unavailable Unavailable Re-disclosure Warning The records that you are about to access may contain information from federally- assisted alcohol or drug abuse programs. If such information is present, then the following federally mandated warning applies: This information has been disclosed to you from records protected by federal confidentiality rules (42 CFR part 2). The federal rules prohibit you from making any further disclosure of this information unless further disclosure is expressly permitted by the written consent of the person to whom it pertains or as otherwise permitted by 42 CFR part 2. A general authorization for the release of medical or other information is NOT sufficient for this purpose. The Federal rules restrict any use of the information to criminally investigate or prosecute any alcohol or drug abuse patient.The records that you are about to access may contain highly sensitive health information, the redisclosure of which is protected by Article 27-F of the [facility] Public Health law. If you continue you may haveaccess to information: Regarding HIV / AIDS; Provided by facilities licensed or operated by the [facility] Office of Mental Health; or Provided by the [facility] Office for People With Developmental Disabilities. If such information is present, then the following [facility] mandated warning applies: This information has been disclosed to you from confidential records which are protected by state law. State law prohibits you from making any further disclosure of this information without the specific written consent of the person to whom it pertains, or as otherwise permitted by law. Any unauthorized further disclosure in violation of state law may result in a fine or usp sentence or both. A general authorization for the release of medical or other information is NOT sufficient authorization for further disclosure. Allergies and Adverse Reactions Type Description Substance Reaction Status Data Source(s ) Drug allergy NSAIDS NSAIDS NOT LISTED [facility] (Non-Steroidal (Non-Steroidal Hospit al Anti-Inflamma Anti-Inflamma Encounters Encounter Providers Location Date Indications Data Source(s ) Emergency Attender: ED STAFF H 02/26/2020 [facility] PHYSICIANAttender: 01:05:00 PM [facility] Center STAFF ED STAFF EDT - PHYSICIANAdmitter: ED 02/26/2020 STAFF 05:58:00 PM PHYSICIANReferrer: EDT ZUNASSIGNED Patient discharged. Emergency Attender: Zander Escamilla 12/05/2018 07:48:00 POSS HE AD TRAUMA Jenna Cortes MD AM EDT - 12/05/2018 ([place] Hospi brian 12:53:00 PM EDT POSS [place] TRAUMA [place] Patient discharged. Medications Medication Brand Start Product Dose Route Administrative Pharmacy [facility] Indications Reaction Description Data Name Date Form Instructions Instructions Source(s) Metoclopram Metocl TABLET 10 mg ORAL complet White samm 10 MG oprami ed [place] Oral Tablet de Hcl Hospit al [Reglan] Metoclopram samm Hcl Insurance Providers Payer name Policy type Policy ID Covered Covered constitution party's Policy P debo / Coverage constitution party ID relationship to [place] Inf ormation type [place] BC PPO [id number] S [id number] BLUE O [id number] 01 [id number] CROSS-[place] O UNITED O [id number] HEALTHCARE OPD [facility] [id number] 01 [id number] CARE BLUE CROSS PPO [id number] OT YL [id number] BLUE CROSS PPO [id number] OT YL [id number] WORLD[place]IDE [id number] PT [id number] INSURANCE BEJOU [id number] HEALTHCARE Problems, Conditions, and Diagnoses Code Display Name Description Problem Type Effective Data Sour ce(s) Dates R20.2 Paresthesia of skin PARESTHESIA OF Diagnosis 02/26/2020 [facility] 01:05:00 PM [facility] EDT R53.1 Weakness WEAKNESS Diagnosis 02/26/2020 [facility] 01:05:00 PM Medical Cente r EDT F17.200 Nicotine F17.200 Diagnosis 12/05/2018 [facility] dependence, 08:37:00 AM Hospital unspecified, EDT uncomplicated Z88.6 Allergy status to Z88.6 Diagnosis 12/05/2018 [place] analgesic agent 08:37:00 AM Hospital status EDT R51 Headache R51 Diagnosis 12/05/2018 [facility] 08:37:00 AM Hospital EDT R42 Dizziness and R42 Diagnosis 12/05/2018 [place] giddiness 08:37:00 AM Hospital EDT H53.8 Other visual H53.8 Diagnosis 12/05/2018 [facility] disturbances 08:37:00 AM Hospital EDT C50.919 Malignant neoplasm C50.919 Diagnosis 12/05/2018 [facility] of unspecified site 08:37:00 AM Hosp ital of unspecified EDT female breast G93.2 Benign intracranial G93.2 Diagnosis 12/05/2018 [facility] hypertension 08:37:00 AM Hospital EDT Results ID Date Data Source [id number] 02/26/2020 02:51:00 PM EDT [facility] 0 Name Value Range Interpretation Description Data Sup porting Code Source(s) Document(s ) Color of Urine YELLOW <content [facility] styleCode="[facility] d">Color, Medical Urine Center </content>YELL OW <content styleCode="Khushbu lics"> (YELLOW )</content> Hemoglobin NEGATIVE <content [facility] [Presence] in styleCode="[facility] Urine by Test d">Urine Blood Medical strip </content>NEGA Center TIVE <content styleCode="Khushbu lics"> (NEGATIVE )</content> Ketones NEGATIVE <content [facility] [Mass/volume] styleCode="Monica Wolfs in Urine by d">Urine Medical Test strip Ketone Center </content>NEGA TIVE MG/DL<content styleCode="Khushbu lics"> (NEGATIVE MG/DL)</conten t> UNK CLEAR <content [facility] styleCode="[facility] d">Urine Medical Clarity Center </content>THERESA R <content styleCode="Khushbu lics"> (CLEAR )</content> Glucose NEGATIVE <content [facility] [Mass/volume] styleCode="[place] Wolfs in Urine by d">Urine Medical Test strip Glucose Center </content>NEGA TIVE MG/DL<content styleCode="Khushbu lics"> (NEGATIVE MG/DL)</conten t> UNK NEGATIVE <content [facility] styleCode="[facility] d">Urine Medical Bilirubin Center </content>NEGA TIVE <content styleCode="Khushbu lics"> (NEGATIVE )</content> Specific 1.015-1.02 <content [facility] gravity of 5 styleCode="Monica Wolfs Urine by Test d">Urine Medical strip Specific Center [place] </content>1.02 0 <content styleCode="Khushbu lics"> (1.015-1.025 )</content> pH of Urine by 4.5-8.0 <content [facility] Test strip styleCode="Monica Ad[facility] d">Urine pH Medical </content>7.0 Center <content styleCode="Khushbu lics"> (4.5-8.0 )</content> Urobilinogen 0.2-1.0 <content [facility] [Units/volume] styleCode="Monica Wolfs in Urine by d">Urine Medical Test strip Urobilinogen Center </content>0.2 MG/DL<content styleCode="Khushbu lics"> (0.2-1.0 MG/DL)</conten t> Leukocyte NEGATIVE <content [facility] esterase styleCode="Monica Wolfs [Presence] in d">Urine Medical Urine by Test Leukocyte Center strip </content>NEGA TIVE <content styleCode="Khushbu lics"> (NEGATIVE )</content> Nitrite NEGATIVE <content [facility] [Presence] in styleCode="Monica Diana Urine by Test d">Urine Medical strip Nitrite Center </content>NEGA TIVE <content styleCode="Khushbu lics"> (NEGATIVE )</content> Protein NEGATIVE <content [facility] [Mass/volume] styleCode="Monica Diana in Urine by d">Urine Medical Test strip Protein Center </content>NEGA TIVE MG/DL<content styleCode="Khushbu lics"> (NEGATIVE MG/DL)</conten t> ID Date Data Source [id number] 02/26/2020 01:53:00 PM EDT [facility] 0400 Name Value Range Interpretation Description Data Sup porting Code Source(s) Document(s ) Erythrocytes 4.0-5.1 <content [facility] [#/volume] in styleCode="Bold [facility] Blood by ">Red Blood Medical Automated count Cell Count Center </content>4.09 MCUMM<content styleCode="Ital ics"> (4.0-5.1 MCUMM)</content > Leukocytes 4.4-11.0 <content [facility] [#/volume] in styleCode="Bold [place] Blood by ">White Blood Medical Automated count Cell Count Center </content>6.35 KCUMM<content styleCode="Ital ics"> (4.4-11.0 KCUMM)</content > Hemoglobin 12.3-16. Below low normal <content [facility] [Mass/volume] in 0 styleCode="Bold [facility] Blood ">Hemoglobin Medical </content>11.9 Center G/DL L<content styleCode="Ital ics"> (12.3-16.0 G/DL)</content> Erythrocyte mean 32.0-37. <content [facility] corpuscular 0 styleCode="Bold [facility] hemoglobin ">Mean Corpus. Medical concentration Hgb Center [Mass/volume] by Concentration Automated count (MCHC) </content>33.1 G/DL<content styleCode="Ital ics"> (32.0-37.0 G/DL)</content> Erythrocyte mean 26.0-34. <content [facility] corpuscular 0 styleCode="Bold [facility] hemoglobin ">Mean Medical [Entitic mass] Corposcular Center by Automated Hemoglobin count </content>29.1 PG<content styleCode="Ital ics"> (26.0-34.0 PG)</content> Erythrocyte mean 80.0-100 <content [facility] corpuscular .0 styleCode="Bold [facility] volume [Entitic ">Mean Medical volume] by Corpuscular Center Automated count Volume </content>88.0 FL<content styleCode="Ital ics"> (80.0-100.0 FL)</content> Hematocrit 36.0-46. <content [facility] [Volume 0 styleCode="Bold [facility] Fraction] of ">Hematocrit Medical Blood by </content>36.0 Center Automated count %<content styleCode="Ital ics"> (36.0-46.0 %)</content> Erythrocyte 11.5-14. Above high <content [facility] distribution 5 normal styleCode="Bold Ad[facility]isa width [Ratio] by ">Red Cell Medical Automated count Distribution Center Width </content>16.5 % H<content styleCode="Ital ics"> (11.5-14.5 %)</content> Platelet mean 8.0-11.0 <content [facility] volume [Entitic styleCode="Bold Ad[facility] volume] in Blood ">Mean Platelet Medical by Automated Volume Center count </content>10.2 FL<content styleCode="Ital ics"> (8.0-11.0 FL)</content> UNK 0.0 <content [facility] styleCode="Bold Ad[facility] ">Nucleated Red Medical Blood Cell Center Count </content>0.00 KCUMM<content styleCode="Ital ics"> (0.0 KCUMM)</content > UNK 0 <content [facility] styleCode="Bold Ad[facility] ">Nucleated Red Medical Blood Cell Center </content>0.0 /100<content styleCode="Ital ics"> (0 /100)</content> Platelets 130-400 <content [facility] [#/volume] in styleCode="Bold [facility] Blood by ">Platelet Medical Automated count Count Center </content>249 KCUMM<content styleCode="Ital ics"> (130-400 KCUMM)</content > ID Date Data Source [id number] 02/26/2020 01:53:00 PM EDT [facility] 0-0400 Name Value Range Interpretation Code Description Data Tiffani rce(s) Supporting Document(s ) UNK > 60 <content [facility] styleCode="Bold"> Medical Cent er EGFR </content>68 GFR<content styleCode="Italic s"> (> 60 GFR)</content> ID Date Data Source [id number] 02/26/2020 01:53:00 PM EDT [facility] Name Value Range Interpretation Description Data Sup porting Code Source(s) Document(s ) Potassium 3.5-5.3 <content [facility] [Moles/volume] styleCode="Monica Adalg[facility] in Serum or d">Potassium Medical Plasma </content>4.0 Center MEQ/L<content styleCode="Khushbu lics"> (3.5-5.3 MEQ/L)</conten t> Chloride 98-107 Above high normal <content [facility] [Moles/volume] styleCode="Monica Adalgisa in Serum or d">Chloride Medical Plasma </content>108 Center MEQ/L H<content styleCode="Khushbu lics"> (98-107 MEQ/L)</conten t> Carbon 22-30 <content [facility] dioxide, total styleCode="Monica Adalgisa [Moles/volume] d">Carbon Medical in Serum or Dioxide Center Plasma </content>22 MEQ/L<content styleCode="Khushbu lics"> (22-30 MEQ/L)</conten t> Sodium 137-145 <content [facility] [Moles/volume] styleCode="Monica Adalgisa in Serum or d">Sodium Medical Plasma </content>138 Center MEQ/L<content styleCode="Khushbu lics"> (137-145 MEQ/L)</conten t> Glucose 74-106 <content [facility] [Mass/volume] styleCode="Monica Ad[facility] in Serum or d">Glucose Medical Plasma </content>105 Center MG/DL<content styleCode="Khushbu lics"> (74-106 MG/DL)</conten t> Creatinine 0.5-1.3 <content [facility] [Mass/volume] styleCode="Monica Adalgisa in Serum or d">Creatinine Medical Plasma </content>1.1 Center MG/DL<content styleCode="Khushub lics"> (0.5-1.3 MG/DL)</conten t> UNK > 60 <content [facility] styleCode="Monica Ad[facility] d">EGFR Medical </content>68 Center GFR<content styleCode="Khushbu lics"> (> 60 GFR)</content> Calcium 8.4-10.2 <content [facility] [Mass/volume] styleCode="Monica Adalg[facility] in Serum or d">Calcium Medical Plasma </content>9.2 Center MG/DL<content styleCode="Khushbu lics"> (8.4-10.2 MG/DL)</conten t> UNK 7-17 <content [facility] styleCode="[facility] d">BUN Medical </content>16 Center MG/DL<content styleCode="Khushbu lics"> (7-17 MG/DL)</conten t> ID Date Data Source [id number] 02/05/2020 01:20:00 AM EDT [facility] Name Value Range Interpretation Description Data Sup porting Code Source(s) Document(s ) SARS [facility] coronavirus 2 RNA This lab was ordered by [facility] and reported by [facility]. ID Date Data Source [id number] 12/10/2019 12:03:00 PM EDT [facility] Name Value Range Interpretation Description Data Sup porting Code Source(s) Document(s ) SARS [facility] CORONAVIRUS 2 RNA This lab was ordered by [facility] and reported by [facility]. ID Date Data Source [id number] 09/30/2019 08:32:00 AM EDT [facility] Name Value Range Interpretation Description Data Sup porting Code Source(s) Document(s ) 2019 Novel [facility] Coronavirus RNA Interpretation Unspecified Specimen Qualitative DAGO Probe Detection This lab [place] [facility] [place] [facility]. ID Date Data Source [id number] 12/05/2018 10:10:00 AM [facility] Name Value Range Interpretation Description Data Sup porting Code Source(s) Document(s ) Aspartate 22 U/L [facility] aminotransferase [place] [Enzymatic Hospital activity/volume] in Serum or Plasma ID Date Data Source [id number] 12/05/2018 10:10:00 AM EDT [facility] Name Value Range Interpretation Description Data Sup porting Code Source(s) Document(s ) Alanine 12 U/L [facility] aminotransferase [place] [Enzymatic Hospital activity/volume] in Serum or Plasma ID Date Data Source [id number] 12/05/2018 10:10:00 AM [facility] Value Range Interpretation Description Data Sup porting Code Source(s) Document(s ) Alkaline 67 U/L [facility] phosphatase Hospital [Enzymatic activity/volume ] in Serum or Plasma ID Date Data Source [id number] 12/05/2018 10:10:00 AM [facility] Value Range Interpretation Description Data Sup porting Code Source(s) Document(s ) Bilirubin.t 0.4 mg/dL [facility] [Mass/volum e] in Serum or Plasma ID Date Data Source [id number] 12/05/2018 10:10:00 AM [facility] Value Range Interpretation Code Description Data Tiffani rce(s) Supporting Document(s ) Albumin/Glob 1.6 [facility] ulin [Mass Hospital Ratio] in Serum or Plasma ID Date Data Source [id number] 12/05/2018 10:10:00 AM [facility] Value Range Interpretation Description Data Sup porting Code Source(s) Document(s ) Albumin 4.7 g/dL [facility] [Mass/volume Hospital ] in Serum or Plasma ID Date Data Source [id number] 12/05/2018 10:10:00 AM EDT [facility] Name Value Range Interpretation Description Data Sup porting Code Source(s) Document(s ) Protein 7.7 g/dL [facility] [Mass/volume Hospital ] in Serum or Plasma ID Date Data Source [id number] 12/05/2018 10:10:00 AM EDT [facility] Name Value Range Interpretation Description Data Sup porting Code Source(s) Document(s ) Calcium 8.4 mg/dL [facility] [Mass/volume Hospital ] in Serum or Plasma ID Date Data Source [id number] 12/05/2018 10:10:00 AM EDT [facility] Name Value Range Interpretation Code Description Data Tiffani rce(s) Supporting Document(s ) Urea 13.3 [facility] nitrogen/Cre Hospital atinine [Mass Ratio] in Serum or Plasma ID Date Data Source [id number] 12/05/2018 10:10:00 AM EDT [facility] Name Value Range Interpretation Description Data Sup porting Code Source(s) Document(s ) Creatinine 0.9 mg/dL [facility] [Mass/volume] Hospital in Serum or Plasma ID Date Data Source [id number] 12/05/2018 10:10:00 AM EDT [facility] Name Value Range Interpretation Description Data Sup porting Code Source(s) Document(s ) Urea 12 mg/dL [facility] nitrogen Hospital [Mass/volume ] in Serum or Plasma ID Date Data Source [id number] 12/05/2018 10:10:00 AM EDT [facility] Name Value Range Interpretation Code Description Data Tiffani rce(s) Supporting Document(s ) Anion gap in 10 [facility] Serum or Hospital Plasma ID Date Data Source [id number] 12/05/2018 10:10:00 AM EDT [facility] Name Value Range Interpretation Description Data Sup porting Code Source(s) Document(s ) Carbon 26 mmol/L [facility] dioxide, Hospital total [Moles/volu me] in Serum or Plasma ID Date Data Source [id number] 12/05/2018 10:10:00 AM EDT [facility] Name Value Range Interpretation Description Data Sup porting Code Source(s) Document(s ) Chloride 107 [facility] [Moles/volum mmol/L Hospital e] in Serum or Plasma ID Date Data Source [id number] 12/05/2018 10:10:00 AM EDT [facility] Name Value Range Interpretation Description Data Sup porting Code Source(s) Document(s ) Potassium 3.8 [facility] [Moles/volume mmol/L Hospital ] in Serum or Plasma ID Date Data Source [id number] 12/05/2018 10:10:00 AM EDT [facility] Name Value Range Interpretation Description Data Sup porting Code Source(s) Document(s ) Sodium 139 mmol/L [facility] [Moles/volu Hospital me] in Serum or Plasma ID Date Data Source [id number] 12/05/2018 10:10:00 AM EDT [facility] Name Value Range Interpretation Description Data Sup porting Code Source(s) Document(s ) Glucose 77 mg/dL [facility] [Mass/volume Hospital ] in Serum or Plasma ID Date Data Source [id number] 12/05/2018 10:10:00 AM EDT [facility] Name Value Range Interpretation Code Description Data Supporting Source(s) Document(s ) NUCLEATED RBCS 0.0 % [facility] (AUTO Hospital DIFF%)DIS ID Date Data Source [id number] 12/05/2018 10:10:00 AM EDT [facility] Name Value Range Interpretation Description Data Sup porting Code Source(s) Document(s ) Differential AUTOMATED [facility] cell count Hospital method - Blood ID Date Data Source [id number] [facility]/05[facility] Range Interpretation Description Data Sup porting Code Source(s) Document(s ) Immature 0.04 [facility] granulocytes 10*3/uL Hospital [#/volume] in Blood by Automated count ID Date Data Source [id number] 12/05/2018 10:10:00 AM [facility] Value Range Interpretation Description Data Sup porting Code Source(s) Document(s ) Basophils 0.06 [facility] [#/volume] in 10*3/uL Hospital Blood by Automated count ID Date Data Source [id number] 12/05/2018 10:10:00 AM [facility] Name Value Range Interpretation Description Data Sup porting Code Source(s) Document(s ) Eosinophils 0.21 [facility] [#/volume] in 10*3/uL Hospital Blood by Automated count ID Date Data Source [id number] 12/05/2018 10:10:00 AM [facility] Name Value Range Interpretation Description Data Sup porting Code Source(s) Document(s ) Monocytes 0.25 [facility] [#/volume] in 10*3/uL Hospital Blood by Automated count ID Date Data Source [id number] 12/05/2018 10:10:00 AM EDT [facility] Name Value Range Interpretation Description Data Sup porting Code Source(s) Document(s ) Lymphocytes 1.70 [facility] [#/volume] in 10*3/uL Hospital Blood by Automated count ID Date Data Source [id number] 12/05/2018 [facility] Name Value Range Interpretation Description Data Sup porting Code Source(s) Document(s ) Neutrophils 2.88 [facility] [#/volume] in 10*3/uL [facility] Blood by Automated count ID Date Data Source [id number] 12/05/2018 10:10:00 AM EDT [facility] Value Range Interpretation Description Data Sup porting Code Source(s) Document(s ) Nucleated 0.0 % [facility] erythrocytes/10 Hospital 0 leukocytes [Ratio] in Blood by Automated count ID Date Data Source [id number] 12/05/2018 10:10:00 AM EDT [facility] Value Range Interpretation Description Data Sup porting Code Source(s) Document(s ) Immature 0.8 % [facility] granulocytes/10 Hospital 0 leukocytes in Blood by Automated count ID Date Data Source [id number] 12/05/2018 10:10:00 AM EDT [facility] Value Range Interpretation Description Data Sup porting Code Source(s) Document(s ) Basophils/100 1.2 % [facility] leukocytes in [facility] Blood by Automated count ID Date Data Source [id number] 12/05/2018 10:10:00 AM EDT [facility] Value Range Interpretation Description Data Sup porting Code Source(s) Document(s ) Eosinophils/100 4.1 % [facility] leukocytes in Hospital Blood by Automated count ID Date Data Source [id number] 12/05/2018 10:10:00 AM EDT [facility] Value Range Interpretation Description Data Sup porting Code Source(s) Document(s ) Monocytes/100 4.9 % [facility] leukocytes in [facility] Blood by Automated count ID Date Data Source [id number] 12/05/2018 10:10:00 AM EDT [facility] Value Range Interpretation Description Data Sup porting Code Source(s) Document(s ) Lymphocytes/10 33.1 % [facility] 0 leukocytes Hospital in Blood by Automated count ID Date Data Source [id number] 12/05/2018 10:10:00 AM EDT [facility] Value Range Interpretation Description Data Sup porting Code Source(s) Document(s ) Neutrophils/10 55.9 % [facility] 0 leukocytes Hospital in Blood by Automated count ID Date Data Source [id number] 12/05/2018 10:10:00 AM EDT [facility] Value Range Interpretation Description Data Sup porting Code Source(s) Document(s ) Platelet mean 10.5 fL [facility] volume Hospital [Entitic volume] in Blood by Automated count ID Date Data Source [id number] 12/05/2018 10:10:00 AM EDT [facility] Value Range Interpretation Description Data Sup porting Code Source(s) Document(s ) Platelets 307 [facility] [#/volume] in 10*3/uL Hospital Blood by Automated count ID Date Data Source [id number] [facility]/05[facility] Description Data Sup porting Code Source(s) Document(s ) Erythrocyte 17.0 % [facility] distribution Hospital width [Ratio] by Automated count ID Date Data Source [id number] [facility]/05[facility]2018 [facility] Interpretation Description Data Sup porting Code Source(s) Document(s ) Erythrocyte mean 31.8 [facility] corpuscular g/dL Hospital hemoglobin concentration [Mass/volume] by Automated count ID Date Data Source [id number] 12/05/2018 [facility] Interpretation Description Data Sup porting Code Source(s) Document(s ) Erythrocyte 29.5 pg [facility] mean Hospital corpuscular hemoglobin [Entitic mass] by Automated count ID Date Data Source [id number] 12/05/2018 10:10:00 AM [facility] Value Range Interpretation Description Data Sup porting Code Source(s) Document(s ) Erythrocyte 92.8 fL [facility] Hospital corpuscular volume [Entitic volume] by Automated count ID Date Data Source [id number] 12/05/2018 [facility] Interpretation Description Data Sup porting Code Source(s) Document(s ) Hematocrit 38.4 % [facility] [Volume Hospital Fraction] of Blood by Automated count ID Date Data Source [id number] 12/05/2018 10:10:00 AM [facility] Value Range Interpretation Description Data Sup porting Code Source(s) Document(s ) Hemoglobin 12.2 g/dL [facility] [Mass/volume] Hospital in Blood ID Date Data Source [id number] 12/05/2018 10:10:00 AM [facility] Value Range Interpretation Description Data Sup porting Code Source(s) Document(s ) Erythrocytes 4.14 [facility] [#/volume] in 10*6/uL Hospital Blood by Automated count ID Date Data Source [id number] 12/05/2018 10:10:00 AM [facility] Value Range Interpretation Description Data Sup porting Code Source(s) Document(s ) Leukocytes 5.1 [facility] [#/volume] in 10*3/uL Hospital Blood by Automated count Procedure Social History Code Duration Value Status Description Data Source(s ) Smoking 02/26/2020 Denies Ever completed Denies Ever Smoked [facility] 02:48:00 PM EDT [facility]oked [facility] enter Smoking 02/26/2020 Denies Ever completed Denies Ever Smoked [facility] 01:41:00 PM EDT [facility] enter Smoking 02/26/2020 Denies Ever completed Denies Ever Smoked [facility] 01:21:00 PM EDT [facility] enter Smoking 12/05/2018 Current some completed Current some day [facility] 08:35:00 AM EDT day smoker smoker Hospital Vital Signs ID Date Data Source UNK Name Value Range Interpretation Code Description Data Source(s) Body temperature 36.975908 36.919124 [facility] Respiratory rate 17 /min 17 /min [facility] Oxygen saturation 99 % 99 % [facility] by Pulse oximetry Heart rate 88 /min 88 /min [facility] Diastolic blood 75 mm[Hg] 75 mm[Hg] [facility] Systolic blood 144 mm[Hg] 144 mm[Hg] [facility] Body temperature 36.358302 36.610180 [facility] Respiratory rate 18 /min 18 /min [facility] Oxygen saturation 99 % 99 % [facility] Arterial blood [facility] Center by Pulse oximetry Heart rate 78 /min 78 /min [facility] Diastolic blood 88 mm[Hg] 88 mm[Hg] [facility] Systolic blood 158 mm[Hg] 158 mm[Hg] [facility] Body temperature 36.969403 36.708566 [facility] Respiratory rate 18 /min 18 /min [facility] Oxygen saturation 98 % 98 % [facility] blood [facility] Center by Pulse oximetry Heart rate 76 /min 76 /min [facility] Diastolic blood 91 mm[Hg] 91 mm[Hg] [facility] Systolic blood 170 mm[Hg] 170 mm[Hg] [facility] Diastolic blood 92 mm[Hg] 92 mm[Hg] [facility] Systolic blood 135 mm[Hg] 135 mm[Hg] [facility] Respiratory rate 20 /min 20 /min [facility] Heart rate 62 /min 62 /min [facility] Body temperature 36.[address] [facility] Body temperature 98.2 [degF] 98.2 [degF] [facility] Body mass index 38.0 kg/m2 38.0 kg/m2 [facility] (BMI) [Ratio] Hospital Body weight 265.55 265.55 [lb_av] [facility] [lb_av] Hospital
--- NOTE | 2020-03-12 14:50 | PDOC ---
History of Present Illness - General Chief Complaint: Chest Pain Stated Complaint: CHEST PAIN/WEAKNESS Time Seen by Provider: 03/12/20 14:35 Past History - Medical History Allergies/Adverse Reactions: Allergies Allergy/AdvReac Type Severity Reaction Status Date / Time NSAIDS (Non-Steroidal Allergy Severe Difficulty Verified 03/12/20 14:10 Anti-Inflamma Breathing [Nsaids] Home Medications: Ambulatory Orders Levothyroxine [Synthroid -] 175 mcg PO DAILY 08/16/14 Cancer: Yes (breast CA s/p right mascetomy, CT/RT, right breast implant) COPD: No Thyroid Disease: Yes (hypothyroid s/p partial thryoidectomy) - Surgical History Neurologic Surgery: (spinal tap to remove fluid in back of head/neck) - Reproductive History Is Patient Now?: No - Immunization History Immunization Up to Date: Yes - Psycho-Social/Smoking History Smoking Status: Yes Smoking History: Current every day smoker Have you smoked in the past 12 months: Yes Number of Cigarettes Smoked Daily: 10 If you are a former smoker, when did you quit?: 08/2019 Information on smoking cessation initiated: No 'Breaking Loose' booklet given: 02/05/20 - Substance Abuse Hx (Audit-C & DAST Scrn) How often the patient has a drink containing alcohol: 2-4 times / month Score: In Men: 4 or > Positive; In Women: 3 or > Positive: 2 Screen Result (Pos requires Nsg. Audit-10AR): Negative *Physical Exam - Vital Signs Last Vital Signs Temp Pulse Resp BP Pulse Ox 97 F L 69 18 153/115 H 100 03/12/20 14:07 03/12/20 14:07 03/12/20 14:07 03/12/20 14:07 03/12/20 14:07 ED Treatment Course - LABORATORY CBC & Chemistry Diagram: 03/12/20 14:50 03/12/20 14:50 Medical Decision Making - Medical Decision Making 03/12/20 14:51 HPI: 50yo F hx obesity, hypothyroidism, migraines, pseudotumor cerebri, right breast cancer s/p mastectomy/chemo/radiation in 2007, and ?pulmonary HTN (diagnosed in last visit 02/10/20) presents from home c/o intermittent nonexertional diffuse pressure and burning type nonpleuritic chest pains most concentrated in breasts x5 days without associated sx including N/V/N/T/lightheadedness/diaphoresis. Also endorses intermittent difficulty taking deep breaths, associated with rhinorrhea and sneezing, similar to sx in September that improved with allergy medications which pt hasn't tried recently. Pt also c/o generalized weakness since Friday, similar to last admission 02/10/20. Pt also went to another hospital 2 weeks ago for similar sx. Pt has been told by multiple doctors that she has panic attacks and anxiety but pt does not think that's it because her sx don't improve by trying to calm herself down. Has scheduled f/u appts with cardiology, pulmonary and neurology in the next week or two. No pain meds tried. Pt states she got a new bra recently and the pain improves when removing her bra, but does not resolve completely. Last mammogram and ultrasound of breasts less than 1 year ago. ROS: Constitutional: Positive for generalized weakness. Negative for chills, fever, diaphoresis. HENT: Positive for rhinorrhea and sneezing. Negative for sore throat, congestion. Eyes: Negative for visual disturbance. Respiratory: Positive for SOB. Negative for cough, and wheezing. Cardiovascular: Positive for chest/breast pain. Negative forpalpitations, and leg swelling. Gastrointestinal: Negative for abdominal pain, blood in stool, constipation, diarrhea, nausea, and vomiting. Genitourinary: Negative for dysuria, flank pain, and hematuria. Musculoskeletal: Negative for myalgias, back pain, and neck pain. Skin: Negative for rash. Neurological: Negative for light-headedness, dizziness, vertigo, syncope, weakness, numbness and headaches. Psychiatric/Behavioral: Negative for behavioral problems and confusion. PE: Gen: Alert, NAD, comfortable-appearing. HEENT: PERRL, EOMI, MMM, NCAT. No conjunctival pallor. Sclera are non-icteric. BREAST: s/p R mastectomy, large L breast in ill-fitting bra, no erythema or fluctuance or peau d/orange or nipple discharge CV: Regular rate and rhythm. No murmurs, rubs, or gallops. PULM: No resp distress. CTAB, no wheezes, rales, or rhonchi. ABD: soft, NT/ND, no rebound tenderness or guarding, no CVA tenderness. BACK: No TTP of c/t/l-spine. No step-offs or deformities. MSK: No bony deformities. 2+ pulses in all extremities. NEURO: AAOx3. PERRL. No gross CN deficits. Strength and sensation grossly intact throughout. EXTREMITIES: No cyanosis. No clubbing. No edema. No calf tenderness. PSYCH: Normal mood and thought pattern. SKIN: Warm and dry. Normal capillary refill. No rashes. No jaundice. MDM: 50yo F hx obesity, hypothyroidism, migraines, pseudotumor cerebri, right breast cancer s/p mastectomy/chemo/radiation in 2007, and ?pulmonary HTN (diagnosed in last visit 02/10/20) presents from home c/o intermittent nonexertional diffuse pressure and burning type nonpleuritic chest pains most concentrated in breasts x5 days without associated sx including N/V/N/T/lightheadedness/diaphoresis. Hypertensive, otherwise hemodynamically stable, afebrile. Ddx: breast pathology/malignancy (though no e/o cellulitis or abscess), ACS/WV (low risk; heart score 3), PE (can't PERC out, Wells score 3), arrhythmia, PNA, MSK pain, infection, metabolic derangement, anemia, allergies -EKG -CXR -CBC,CMP,Cardiac profile and tropx2,TSH,UA,Lipase,Mg,Phos -CTPE -Tylenol -Pepcid -Dispo: pending workup and reassessment, likely d/c home Labs reviewed. No concerning findings. Slight hypothyroid - f/u outpatient. EKG reviewed: normal sinus rhythm, 68bpm, normal axis, normal intervals, no TWIs, no ST elevations or depressions CXR reviewed: No acute pathology CTPE reviewed: No PE HTN and pain improved. Will discharge home with PCP, onc, cardio, pulm, neuro f/u. Return precautions given. Pt understands all discharge instructions and all questions were answered. Discharge - Discharge Information Problems reviewed: Yes Clinical Impression/Diagnosis: Weakness, Chest pain, Difficulty breathing Condition: Improved Disposition: HOME - Admission No - Follow up/Referral Referrals: Lilian Alvarado MD [Primary Care Provider] - - Patient Discharge Instructions Patient Printed Discharge Instructions: DI for Atypical Chest Pain Additional Instructions: You have been seen in the Emergency Department for your chest pain and weakness. Your EKG, chest X-ray, CT scan of your chest, and labs, including Troponin (a heart enzyme), show no signs concerning for an emergent condition such as a heart attack or clot in your lungs. You will need further evaluation by your car diologist and campus recruiting coordinator - follow-up at your upcoming scheduled appointments. Also follow-up with your primary care doctor within [address] scan also noted a prominent lymph node (the full scan reading is below) - follow-up with your Oncologist within 1 week for further evaluation. If you experience pain, you can take Tylenol as directed on the medication bottle, but do not exceed 4g of Tylenol a day. Return to the Emergency Department immediately if you experience chest pain, cough, fever, difficulty breathing, passing out, or any other new or worsening symptom. Take this to your doctor appointments so they can read: CTA Chest IMPRESSION: 1. Limited examination for PE secondary to poor opacification of the pulmonary arteries and branches. No large occlusive central PE. If there is continued concern recommend repeat examination or VQ scan. 2. Mild patchy peripheral ground glass and nodular infiltrate in the right upper lung and pleural-based nodularity in the superior segment of the left lower lobe. Developing pneumonia cannot be excluded. Recommend clinical correlation and follow-up. 3. No pathologic mediastinal or hilar adenopathy. Prominent left axillary node measures 2.2 x 1.4 cm. - Post Discharge Activity
--- NOTE | 2020-03-12 15:03 | EKG ---
Test Reason : Blood Pressure : / mmHG Vent. Rate : 068 BPM Atrial Rate : 068 BPM P-R Int : 164 ms QRS Dur : 088 ms QT Int : 460 ms P-R-T Axes : 052 000 042 degrees QTc Int : 489 ms NORMAL SINUS RHYTHM POSSIBLE LEFT ATRIAL ENLARGEMENT PROLONGED QT ABNORMAL ECG WHEN COMPARED WITH ECG OF 04-FEB-2020 16:23, NO SIGNIFICANT CHANGE WAS FOUND Confirmed by MD Eugene, Nish ([id number]) on 03/12/2020 3:02:34 PM Referred By: Confirmed By:Nish Knight MD
[2020-03-12 15:16] LABS: BASO % 1.1 % (0-2.0); EOS % 3.7 % (0-4.5); HEMATOCRIT 37.1 % (32.4-45.2); HEMOGLOBIN 12.2 GM/dL (10.7-15.3); LYMPH % 26.5 % (8-40); MCH 28.9 pg (25.7-33.7); MCHC 32.9 g/dl (32.0-36.0); MEAN CELL VOLUME 87.8 fl (80-96); MEAN PLT VOLUME 8.1 fl (7.5-11.1); MONO % 4.4 % (3.8-10.2); NEUT % 64.3 % (42.8-82.8); PLATELET COUNT 273 K/MM3 (134-434); RBC 4.23 M/mm3 (3.60-5.2); RDW 17.5 % (11.6-15.6); WHITE BLOOD COUNT 6.6 K/mm3 (4.0-10.0)
[2020-03-12 15:18] LABS: URINE APPEARANCE CLEAR; URINE BILIRUBIN NEGATIVE (NEGATIVE); URINE COLOR YELLOW; URINE GLUCOSE (UA) NEGATIVE (NEGATIVE); URINE KETONE NEGATIVE (NEGATIVE); URINE LEUK ESTERASE NEGATIVE (NEGATIVE); URINE NITRITE NEGATIVE (NEGATIVE); URINE PROTEIN NEGATIVE (NEGATIVE); URINE UROBILINOGEN 0.2 mg/dL (0.2-1.0)
[2020-03-12 15:21] LABS: HCG,QUALITATIVE URINE Negative
[2020-03-12] MEDS ORDERED: ACETAMINOPHEN 1000 MG/100 ML VIAL (NON FORMULARY) IVPB ONE (15:36)
[2020-03-12] MEDS ORDERED: FAMOTIDINE 20 MG/50 ML IVPB 20 MG/50 ML MG IVPB ONE ×2 (15:36→16:04)
[2020-03-12 15:55] LABS: ALBUMIN 3.9 g/dl (3.4-5.0); ALK PHOS 96 U/L (45-117); ANION GAP 5 MMOL/L (8-16); BILIRUBIN,TOTAL 0.3 mg/dL (0.2-1); BLOOD UREA NITROGEN 12.7 mg/dL (7-18); CHLORIDE 106 mmol/L (98-107); CO2 27 mmol/L (21-32); CREATININE 0.9 mg/dL (0.55-1.3); GLUCOSE,RANDOM 89 mg/dL (74-106); LIPASE 189 U/L (73-393); MAGNESIUM 2.3 mg/dL (1.8-2.4); PHOSPHOROUS 3.3 mg/dL (2.5-4.9); POTASSIUM 4.5 mmol/L (3.5-5.1); SGOT/AST 22 U/L (15-37); SGPT/ALT 15 U/L (13-61); SODIUM 138 mmol/L (136-145); TOT PROT 7.8 g/dl (6.4-8.2)
[2020-03-12] MEDS ORDERED: ACETAMINOPHEN INJECTION 100 ML IVPB ONE (15:58)
--- NOTE | 2020-03-12 17:46 | PDOC ---
Documentation entered by Chaparrita Soto SCRIBE, acting as scribe for Arabella Martinez MD. Arabella Martinez MD: This documentation has been prepared by the scribe, Chaparrita Soto SCRIBE, under my direction and personally reviewed by me in its entirety. I confirm that the documentation accurately reflects all work, treatment, procedures, and medical decision making performed by me. Attending Attestation - Resident Resident Name: [facility] - ED Attending Attestation I have performed the following: I have examined & evaluated the patient, The case was reviewed & discussed with the resident, I agree w/resident's findings & plan, Exceptions are as noted - HPI HPI: 03/12/20 16:45 The patient is a 50-year-old female with a past medical history significant for Breast CA (s/p mastectomy and lymph node removal 2007), Pulmonary HTN (dx 01/2020, has converter skimmer follow up in 2 weeks), hypothyroidism who presents to the emergency department with generalized weakness and chest pain since Friday. The patient presents with 5 days of intermittent, nonpleuritic, nonexertional bilateral breast pain and pressure. The patient reports she recently bought a new bra and reports the pain improved after taking the bra off. The patient reports additional complaints of difficulty taking a deep breath and sneezing. The patient reports a similar episode in September that improved with allergy medication, and denies taking any allergy medication for symptoms. Denies recent sick contact or travel. Denies exogenous hormone use, recent travel/immobility. Denies headache, dizziness, abd pain, N/V/D, LE edema, or calf pain. - Physicial Exam PE: 03/12/20 17:44 Agree with resident exam - Medical Decision Making 03/12/20 17:44 50yo F hx breast ca, hypothyroid, possible pulm HTN presents to the ED with CP, worse with breathing Vitals initially with HTN which resolved w/o intervention on rpt Exam unremarkable DDx includes ACS vs PE vs MSK pain vs PNA HS is 3, wells PE score 3 (PE equally likely as #1 dx) so will obtain CTA Plan: -labs, including tropx2 -EKG -CTA chest r/o PE -reassess Heart Score/ECG Review - History History: Slightly suspicious - Electrocardiogram EKG: Non specific repolarization disturbance - Age Age: 45-65 - Risk Factors Based on the list above the patient has:: 1-2 risk factors - Troponin Troponin: </= normal limit - Score Heart Score - Total: 3 #1 03/12/20 17:46 EKG read and int by me: NSR, rate 68, normal axis and intervals, no KARIN or TWI Discharge - Discharge Information Problems reviewed: Yes Clinical Impression/Diagnosis: Weakness, Chest pain, Difficulty breathing Condition: Stable - Follow up/Referral Referrals: Lilian Alvarado MD [Primary Care Provider] - - Patient Discharge Instructions - Post Discharge Activity
[2020-03-12 18:36] VITALS: BP 144/91; PULSE 60
== END 2020-03-12 19:47 | disposition home or self-care (01) ==
LOC: JER 14:01
PROC: 3E0333Z Introduction of Anti-inflammatory into Peripheral Vein, Percutaneous Approach (ICD-10-PCS; principal; 2020-03-12)
PROC: 3E033GC Introduction of Other Therapeutic Substance into Peripheral Vein, Percutaneous Approach (ICD-10-PCS; 2020-03-12)
DX: R53.1 Weakness (principal); R07.9 Chest pain, unspecified
CPT/HCPCS: 36415; 71046-TC-FY; 71275-TC; 80053; 81003; 82550; 83690; 83735; 84100; 84439; 84443; 84481; 84484; 84703; 85025; 85730; 93005; 93010; 99285-25; J0131; Q9967; U0003

== ENCOUNTER 2020-03-24 13:30 | Emergency (ER) | payer BC ==
[2020-03-24 14:00] VITALS: BMI 37.8
--- NOTE | 2020-03-24 14:19 | PDOC ---
History of Present Illness - General Chief Complaint: Blood Pressure Problem Stated Complaint: BP PROBLEM Time Seen by Provider: 03/24/20 14:14 - History of Present Illness Initial Comments: 03/24/20 14:39 HPI: This is a 50 y/o female with a PMH of obesity, hypothyroid, migraines, psuedotumor cerebri, R. breast Ca s/p mastectomy/chemo/rad, and pulmonary HTN presenting to the ED because an episode of HTN with accompanying weakness and occipital headache. The patient was at work earlier, and as she was walking she began to feel as though she was going to pass out. 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 She started feeling anxious and called her primary care physician who advised that she come to the ED. She then retook her pressure and found it to be 160/100. She then developed a pulsating occipital headache. She describes previous episodes of lighth eadedness accompanied by an increase in blood pressure, and has been worked up for this before. She denies SOB, blurry vision, abdominal pain, focal weakness, numbness/tingling. ROS: GENERAL/CONSTITUTIONAL: No fever/chills, diaphoresis, Yes generalized weakness. HEENT: No change in vision. No blurry vision CARDIOVASCULAR: Chest tightness. No palpitations or peripheral edema RESPIRATORY: No shortness of breath, dyspnea with exertion, cough, wheezing, or hemoptysis. GASTROINTESTINAL: No abdominal pain, nausea, vomiting, diarrhea or constipation. GENITOURINARY: No dysuria, frequency, or change in urination. MUSCULOSKELETAL: No joint or muscle swelling or pain. SKIN: No rash or hives NEUROLOGIC: Yes occipital throbbing headache, No vertigo, focal weakness, loss of consciousness, or change in strength/sensation. ENDOCRINE: No increased thirst. No unexplained weight loss. HEMATOLOGIC/LYMPHATIC: No anemia, easy bleeding, or history of blood clots. PMH: obesity, hypothyroid, migraines, psuedotumor cerebri, R. breast Ca s/p mastectomy/chemo/rad, and pulmonary HTN PSx: Denied Social Hx: Denied etoh, tobacco, drug use Meds: See nurse note Allergies: See nurse note PE: GENERAL: Awake, alert, and fully oriented, in mild distress. Anxious appearing. HEENT: Normocephalic, atraumatic. PERRLA, EOMI. No conjunctival pallor. Moist mucous membranes. NECK: Normal ROM and supple. No lymphadenopathy, JVD, or masses. CARDIOVASCULAR: Regular rate and rhythm, normal S1 and S2, no murmurs, rubs or gallops PULMONARY: No respiratory distress. Breath sounds equal, clear to auscultation bilaterally. No wheezes, rales or rhonchi. ABDOMEN: Soft, nontender, normoactive bowel sounds. EXTREMITIES: Normal range of motion, no edema or erythema, no calf tenderness. NEUROLOGICAL: Cranial nerves II through XII grossly intact. Normal speech, normal gait. Sensation intact in bilateral upper and lower extremities. SKIN: Warm, Dry, normal turgor, no rashes or lesions noted. Normal capillary refill. PSYCHIATRIC: Patient appears anxious. MDM: 03/24/20 14:39 This is a 50 y/o female with a PMH of obesity, hypothyroid, migraines, psuedotumor cerebri, R. breast Ca s/p mastectomy/chemo/rad, and pulmonary HTN presenting to the ED because an episode of HTN with accompanying weakness and occipital headache. - She was admitted a few weeks ago with the same complaint - She had an extensive workup and is supposed to follow-up as an outpatient - Neurological exam was normal. No focal neurologic deficits Will do basic workup to check for causes of lightheadedness - EKG, Cardiac panel - CBC, CMP - Recheck pressure EKG: No ST elevations T wave inversions Normal sinus rhythm Vent rate 60 bpm, NM interval 168ms QRS duration 86ms QT/ QTc 458/458ms 03/24/20 16:47 - Patient was prescribed xanax for her anxiety, however she doesn't take it. She was advised to take it in the ED to see if it helped. 03/24/20 17:33 Labs all WNL Troponin negative EKG ok BP improving in ED Patient already has extensive follow-up B/P was 144/77 - Patient stable to d/c with return precautions and follow-up - She will start taking her blood pressure in the morning for two weeks Past History - Medical History Allergies/Adverse Reactions: Allergies Allergy/AdvReac Type Severity Reaction Status Date / Time NSAIDS (Non-Steroidal Allergy Severe Difficulty Verified 03/24/20 13:56 Anti-Inflamma Breathing [Nsaids] Home Medications: Ambulatory Orders Levothyroxine [Synthroid -] 175 mcg PO DAILY 08/16/14 Cancer: Yes (breast CA s/p right mascetomy, CT/RT, right breast implant) COPD: No Thyroid Disease: Yes (hypothyroid s/p partial thryoidectomy) - Surgical History Neurologic Surgery: (spinal tap to remove fluid in back of head/neck) - Reproductive History Is Patient Now?: No - Immunization History Immunization Up to Date: Yes - Psycho-Social/Smoking History Smoking Status: Yes Smoking History: Former smoker Have you smoked in the past 12 months: Yes Number of Cigarettes Smoked Daily: 10 If you are a former smoker, when did you quit?: 2019 Information on smoking cessation initiated: No 'Breaking Loose' booklet given: 02/05/20 - Substance Abuse Hx (Audit-C & DAST Scrn) How often the patient has a drink containing alcohol: Monthly or less Number of drinks the patient has on a typical day: 1 or 2 How often the patient has six or more drinks on one occasion: Never Score: In Men: 4 or > Positive; In Women: 3 or > Positive: 1 Screen Result (Pos requires Nsg. Audit-10AR): Negative In the last yr the pt used illegal drug/Rx for NonMed reason: No Score: Yes response is considered Positive: 0 Screen Result (Positive result requires Nsg. DAST-10): Negative *Physical Exam - Vital Signs Last Vital Signs Temp Pulse Resp BP Pulse Ox 98.4 F 75 16 167/101 H 100 03/24/20 13:57 03/24/20 13:57 03/24/20 13:57 03/24/20 13:57 03/24/20 13:57 ED Treatment Course - LABORATORY CBC & Chemistry Diagram: 03/24/20 15:37 03/24/20 15:37 Discharge - Discharge Information Problems reviewed: Yes Clinical Impression/Diagnosis: High blood pressure Qualifiers: Hypertension type: unspecified Qualified Code(s): I10 - Essential (primary) hyp ertension Condition: Improved Disposition: HOME - Admission No - Follow up/Referral Referrals: Lilian Alvarado MD [Primary Care Provider] - - Patient Discharge Instructions Patient Printed Discharge Instructions: DI for High Blood Pressure, How to Monitor Your Blood Pressure at Home Additional Instructions: You came to the emergency department because your blood pressure was high, and you were feeling lightheaded. We did an EKG which was normal We did basic labs which were also normal We did a troponin which checks your heard and that was normal. You're prescribed xanax for when you feel anxious. Try and take this when you feel like your blood pressure is getting high. Buy a blood pressure machine and check your blood pressure in the morning when you first wake up before you get out of bed. Track it for two weeks and bring the results to your primary care doctor. Follow-up with all of your specialists, and take your medication as prescribed. Return to the ED with any new or concerning symptoms. Return if you have loss of consciousness, numbness and tingling in only one part of your body, a headache that is the worst headache of your life, or any worsening symptoms. - Post Discharge Activity
--- OUTSIDE RECORDS SUMMARY | 2020-03-24 14:32 | XMS ---
:1970 Author Organization [facility] Care Team Providers Name Role Phone ED STAFF PHYSICIAN Unavailable Unavailable ED STAFF [...] is protected by Article 27-F of the [facility] Public Health law. If you continue you may haveaccess to information: Regarding HIV / AIDS; Provided by facilities licensed or operated by the [facility] Office of Mental Health; or Provided by the [facility] Office for People With Developmental Disabilities. If such information is present, then the following [facility] mandated warning applies: This information has been [...] law may result in a fine or residential sentence or both. A general authorization for the release of medical or other information is NOT sufficient authorization for further disclosure. Encounters Encounter Providers Location Date Indications Data Source(s ) Emergency Attender: ED STAFF H 02/26/2020 [facility] PHYSICIANAttender: 01:05:00 PM [facility] al Center STAFF ED STAFF EDT - PHYSICIANAdmitter: ED 02/26/2020 STAFF 05:58:00 PM PHYSICIANReferrer: EDT ZUNASSIGNED Patient discharged. Insurance Providers Payer name Policy type Policy ID Covered Covered constitution party's Policy P debo / Coverage constitution party ID relationship to [place] Inf ormation type [place] BC PPO [id number] BLUE O [id number] 01 [id number] [place] O [id number] HEALTHCARE OPD [facility] O [id number] CARE BLUE CROSS PPO [id number] OT YL [id number] BLUE CROSS PPO [id number] OT [id number] [employer] [id number] PT [id number] INSURANCE UNITED [id number] HEALTHCARE Problems, Conditions, and Diagnoses Code Display Name Description Problem Type Effective Dates Data Source(s) R20.2 Paresthesia of PARESTHESIA OF Diagnosis 02/26/2020 [facility] skin SKIN 01:05:00 PM EDT Medical C enter R53.1 Weakness WEAKNESS Diagnosis 02/26/2020 [facility] 01:05:00 PM EDT Medical C enter Results ID Date Data Source [id number] 03/12/2020 07:13:00 PM EDT [facility] Name Value Range Interpretation Description Data Sup porting Code Source(s) Document(s ) SARS [facility] coronavirus 2 RNA This lab was ordered by [facility] and reported by [facility]. ID Date Data Source [id number] 02/26/2020 02:51:00 PM EDT [facility] 0 Name Value Range Interpretation Description Data Sup porting Code Source(s) Document(s ) Color of Urine YELLOW <content Saint styleCode="Monica Adalgisa d">Color, Medical Urine Center </content>YELL OW <content styleCode="Khushbu lics"> (YELLOW )</content> Hemoglobin NEGATIVE <content [facility] [Presence] in styleCode="Monica Wolfs Urine by Test d">Urine Blood Medical strip </content>NEGA Center TIVE <content styleCode="Khushbu lics"> (NEGATIVE )</content> Ketones NEGATIVE <content Saint [Mass/volume] styleCode="Monica Wolfs in Urine by d">Urine Medical Test strip Ketone Center </content>NEGA TIVE MG/DL<content styleCode="Khushbu lics"> (NEGATIVE MG/DL)</conten t> UNK CLEAR <content Saint styleCode="Monica Adalgisa d">Urine Medical Clarity Center </content>THERESA R <content styleCode="Khushbu lics"> (CLEAR )</content> Glucose NEGATIVE <content Saint [Mass/volume] styleCode="Monica Adalgisa in Urine by d">Urine Medical Test strip Glucose Center </content>NEGA TIVE MG/DL<content styleCode="Khushbu lics"> (NEGATIVE MG/DL)</conten t> UNK NEGATIVE <content Saint styleCode="Monica Adalgisa d">Urine Medical Bilirubin Center </content>NEGA TIVE <content styleCode="Khushbu lics"> (NEGATIVE )</content> Specific 1.015-1.02 <content Saint gravity of 5 styleCode="Monica Adalgisa Urine by Test d">Urine Medical strip Specific Center [place] </content>1.02 0 <content styleCode="Khushbu lics"> (1.015-1.025 )</content> pH of Urine by 4.5-8.0 <content Saint Test strip styleCode="Monica Adalgisa d">Urine pH Medical </content>7.0 Center <content styleCode="Khushbu lics"> (4.5-8.0 )</content> Urobilinogen 0.2-1.0 <content Saint [Units/volume] styleCode="Monica Adalgisa in Urine by d">Urine Medical Test strip Urobilinogen Center </content>0.2 MG/DL<content styleCode="Khushbu lics"> (0.2-1.0 MG/DL)</conten t> Leukocyte NEGATIVE <content Saint esterase styleCode="Monica Adalgisa [Presence] in d">Urine Medical Urine by Test Leukocyte Center strip </content>NEGA TIVE <content styleCode="Khushbu lics"> (NEGATIVE )</content> Nitrite NEGATIVE <content Saint [Presence] in styleCode="Monica Adalgisa Urine by Test d">Urine Medical strip Nitrite Center </content>NEGA TIVE <content styleCode="Khushbu lics"> (NEGATIVE )</content> Protein NEGATIVE <content Saint [Mass/volume] styleCode="Monica Adalgisa in Urine by d">Urine Medical Test strip Protein Center </content>NEGA TIVE MG/DL<content styleCode="Khushbu lics"> (NEGATIVE MG/DL)</conten t> ID Date Data Source HematologyRou.[id number] 02/26/2020 01:53:00 PM EDT [facility] Name Value Range Interpretation Description Data [...] (130-400 KCUMM)</content > ID Date Data Source GFR(Creatinine).[id number] 02/26/2020 01:53:00 PM EDT [facility] 0-0400 Name Value Range Interpretation Code Description Data Tiffani rce(s) Supporting Document(s ) UNK > 60 <content [facility] styleCode="Bold"> Medical Cent er EGFR </content>68 GFR<content styleCode="Italic s"> (> 60 GFR)</content> ID Date Data Source [id number] 02/26/2020 01:53:00 PM EDT [facility] Name Value Range Interpretation Description Data [...] Carbon 22-30 <content Saint dioxide, total styleCode="Monica Wolfs [Moles/volume] d">Carbon Medical in Serum or Dioxide Center Plasma </content>22 MEQ/L<content styleCode="Khushbu lics"> (22-30 MEQ/L)</conten t> Sodium 137-145 <content Saint [Moles/volume] styleCode="Monica Adalgisa in Serum or d">Sodium Medical Plasma </content>138 Center MEQ/L<content styleCode="Khushbu lics"> (137-145 MEQ/L)</conten t> Glucose 74-106 <content Saint [Mass/volume] styleCode="Monica Wolfs in Serum or d">Glucose Medical Plasma </content>105 Center MG/DL<content styleCode="Khushbu lics"> (74-106 MG/DL)</conten t> Creatinine 0.5-1.3 <content Saint [Mass/volume] styleCode="Monica Wolfs in Serum or d">Creatinine Medical Plasma </content>1.1 Center MG/DL<content styleCode="Khushbu lics"> (0.5-1.3 MG/DL)</conten t> UNK > 60 <content Saint styleCode="Monica Wolfs d">EGFR Medical </content>68 Center GFR<content styleCode="Khuhsbu lics"> (> 60 GFR)</content> Calcium 8.4-10.2 <content Saint [Mass/volume] styleCode="Monica Wolfs in Serum or d">Calcium Medical Plasma </content>9.2 Center MG/DL<content styleCode="Khushbu lics"> (8.4-10.2 MG/DL)</conten t> UNK 7-17 <content Saint styleCode="Monica Wolfs d">BUN Medical </content>16 Center MG/DL<content styleCode="Khushbu lics"> (7-17 MG/DL)</conten t> ID Date Data Source [id number] 02/05/2020 01:20:00 AM EDT [facility] Name Value Range Interpretation Description Data Sup porting Code Source(s) Document(s ) SARS [facility] coronavirus 2 RNA This lab was ordered by [facility] and reported by [facility]. ID Date Data Source [id number] 12/10/2019 12:03:00 PM EDT [facility] Name Value Range Interpretation Description Data Sup porting Code Source(s) Document(s ) SARS [facility] CORONAVIRUS 2 RNA This lab was ordered by [facility] and reported by [facility]. ID Date Data Source [id number] 09/30/2019 08:32:00 AM EDT [facility] Name Value Range Interpretation Description Data Sup porting Code Source(s) Document(s ) 2019 Novel [facility] Coronavirus RNA Interpretation Unspecified Specimen Qualitative DAGO Probe Detection [facility] lab [facility] by [facility]. Procedure Social History Code Duration Value Status Description Data Source(s ) Smoking 02/26/2020 Denies Ever completed Denies Ever Smoked [facility] 02:48:00 PM EDT Smoked Medical C enter Smoking 02/26/2020 Denies Ever completed Denies Ever Smoked [facility] 01:41:00 PM EDT Smoked Medical C enter Smoking 02/26/2020 Denies Ever completed Denies Ever Smoked [facility] 01:21:00 PM EDT Smoked Medical C enter Vital Signs ID Date Data Source UNK Name Value Range Interpretation Code Description Data Source(s) Body temperature 36.806357 36.071201 [facility] Respiratory rate 17 /min 17 /min [facility] Oxygen saturation 99 % 99 % [facility] Arterial blood [facility] by Pulse oximetry Heart rate 88 /min 88 /min [facility] Diastolic blood 75 mm[Hg] 75 mm[Hg] [facility] Systolic blood 144 mm[Hg] 144 mm[Hg] [facility] Body temperature 36.904520 36.427962 [facility] Respiratory rate 18 /min 18 /min [facility] Oxygen saturation 99 % 99 % [facility]sephs in [facility] by Pulse oximetry Heart rate 78 /min 78 /min [facility] Diastolic blood 88 mm[Hg] 88 mm[Hg] [facility] Systolic blood 158 mm[Hg] 158 mm[Hg] [facility] Body temperature 36.070852 36.003583 [facility] Respiratory rate 18 /min 18 /min [facility] Oxygen saturation 98 % 98 % [facility] Arterial blood [facility] by Pulse oximetry Heart rate 76 /min 76 /min [facility] Diastolic blood 91 mm[Hg] 91 mm[Hg] [facility] Systolic blood 170 mm[Hg] 170 mm[Hg] [facility]
[2020-03-24 15:21] VITALS: TEMP 98.6
[2020-03-24 16:04] LABS: EOS % 2.4 % (0-4.5); HEMATOCRIT 36.3 % (32.4-45.2); LYMPH % 25.7 % (8-40); MCH 29.3 pg (25.7-33.7); MCHC 33.1 g/dl (32.0-36.0); MEAN CELL VOLUME 88.5 fl (80-96); MEAN PLT VOLUME 8.8 fl (7.5-11.1); MONO % 3.6 % (3.8-10.2); NEUT % 67.3 % (42.8-82.8); PLATELET COUNT 234 K/MM3 (134-434); RDW 16.7 % (11.6-15.6)
[2020-03-24 16:31] LABS: ALK PHOS 100 U/L (45-117); ANION GAP 6 MMOL/L (8-16); BILIRUBIN,TOTAL 0.4 mg/dL (0.2-1); BLOOD UREA NITROGEN 13.1 mg/dL (7-18); CALCIUM 8.9 mg/dL (8.5-10.1); CHLORIDE 106 mmol/L (98-107); CO2 27 mmol/L (21-32); CREATININE 0.9 mg/dL (0.55-1.3); GLUCOSE,RANDOM 84 mg/dL (74-106); POTASSIUM 4.1 mmol/L (3.5-5.1); SGOT/AST 13 U/L (15-37); SGPT/ALT 19 U/L (13-61); SODIUM 139 mmol/L (136-145); TOT PROT 7.7 g/dl (6.4-8.2)
--- NOTE | 2020-03-24 16:31 | PDOC ---
Documentation entered by Peace Ortega SCRIBE, acting as scribe for Osorio Randolph MD. Osorio Randolph MD: This documentation has been prepared by the [place], SCRIBE, under my direction and personally reviewed by me in its entirety. I confirm that the documentation accurately reflects all work, treatment, procedures, and medical decision making performed by me. Attending Attestation - Resident Resident Name: Carolee Rain - ED Attending Attestation I have performed the following: I have examined & evaluated the patient, The case was reviewed & discussed with the resident, I agree w/resident's findings & plan, Exceptions are as noted - HPI HPI: 03/24/20 14:25 The patient is a 50-year-old female with a past medical history significant for Breast CA (s/p mastectomy and lymph node removal 2007), ?Pulmonary HTN, hypothyroidism who presents to the emergency department with hypertension. Pt states she was at work earlier started feeling a sensation of generalized weakness and lightheadedness overcome her when she was walking around at work. Pt states she sat down, the nurse took her BP and it was 150/90. Pt states she called her PCP and was advised to come to the ED. Pt states she then took her BP again and it was 160/100 and suddenly developed a gradual onset occipital headache associated with chest heaviness shortly afterwards. She notes the headache is similar to headaches she has had in the past that she gets approximately weekly that usually resolves with rest. Pt states she endorsed similar episode in the past, and was admitted for a workup. Pt does endorse some life stressors recently, but did not want to elaborate. Denies recent sick contact or travel. Denies visual changes, dizziness, abd pain, N/V/D, LE edema, or calf pain. Denies SOB, banda, CP, cough, fever, N/V/D. Allergies: NSAIDS PCP: Lilian Garcia - Physicial Exam PE: 03/24/20 16:29 GENERAL: The patient is awake, alert, and fully oriented, Nontoxic - in no acute distress. HEAD: Normocephalic, atraumatic. EYES: extraocular movements intact, sclera anicteric, conjunctiva clear. ENT: Normal voice, Moist mucous membranes. NECK: Normal range of motion, supple LUNGS: Breath sounds equal, clear to auscultation bilaterally. No wheezes, no rhonchi, no rales. HEART: Regular rate and rhythm, normal S1 and S2 without murmur, rub or gallop. ABDOMEN: Soft, nontender, No guarding, no rebound. No CVA tenderness EXTREMITIES: Normal range of motion, no edema. NEUROLOGICAL: No facial assymetry, Normal speech, PSYCH: Normal mood, normal affect. SKIN: Warm, Dry, normal turgor, - Medical Decision Making 03/24/20 16:30 will obtain blodo work to screen fora cs/anemia.metabolic derangement unclear if her bp is secondary to a stress response vs underlying htn she is very concerned about her bp - i discussed a plan of keeping a BP log for the next 2 weeks if workup negative so she can show her PMD to see if her bp sh ould be treated or not. she has a xanax. will have her take one and will reasess ehr and her bp Heart Score/ECG Review - ECG Impressions Comment:: 03/24/20 16:29 Twelve-lead EKG was performed and reviewed by me. There is normal sinus rhythm with a normal rate. rate of 60 The axis is normal. The intervals are normal. There is normal R wave progression There are no ST or T wave abnormalities. Impression: Normal twelve-lead EKG Discharge - Discharge Information Problems reviewed: Yes Clinical Impression/Diagnosis: High blood pressure Qualifiers: Hypertension type: unspecified Qualified Code(s): I10 - Essential (primary) hypertension Condition: Improved Disposition: HOME - Follow up/Referral Referrals: Lilian Alvarado MD [Primary Care Provider] - - Patient Discharge Instructions Patient Printed Discharge Instructions: DI for High Blood Pressure, How to Monitor Your Blood Pressure at Home Additional Instructions: You came to the emergency department because your blood pressure was high, and you were feeling lightheaded. We did an EKG which was normal We did basic labs which were also normal We did a troponin which checks your heard and that was normal. You're prescribed xanax for when you feel anxious. Try and take this when you feel like your blood pressure is getting high. Buy a blood pressure machine and check your blood pressure in the morning when you first wake up before you get out of bed. Track it for two weeks and bring the results to your primary care doctor. Follow-up with all of your specialists, and take your medication as prescribed. Return to the ED with any new or concerning symptoms. Return if you have loss of consciousness, numbness and tingling in only one part of your body, a headache that is the worst headache of your life, or any worsening symptoms. - Post Discharge Activity
[2020-03-24] MEDS ORDERED: ACETAMINOPHEN 325 MG TABLET (FP) PO ONE (17:24)
[2020-03-24 17:27] VITALS: BP 142/84; PULSE 70
[2020-03-24] MEDS ORDERED: ACETAMINOPHEN 325 MG TABLET (FP) ONE (17:38)
--- NOTE | 2020-03-25 08:14 | EKG ---
Test Reason : Blood Pressure : / mmHG Vent. Rate : 060 BPM Atrial Rate : 060 BPM P-R Int : 168 ms QRS Dur : 086 ms QT Int : 458 ms P-R-T Axes : 058 002 033 degrees QTc Int : 458 ms NORMAL SINUS RHYTHM NORMAL ECG WHEN COMPARED WITH ECG OF 12-MAR-2020 14:06, NO SIGNIFICANT CHANGE WAS FOUND Confirmed by Cassie Cool ([id number]) on 03/25/2020 8:14:48 AM Referred By: Confirmed By:Cassie Cool
== END 2020-03-24 17:43 | disposition home or self-care (01) ==
LOC: JER 13:30
DX: I10 Essential (primary) hypertension (principal)
CPT/HCPCS: 36415; 80053; 82550; 82553; 84484; 85025; 93005; 93010; 99284-25

== ENCOUNTER 2020-07-22 12:01 | Emergency (ER) | payer BC ==
[2020-07-22 12:44] VITALS: BP 131/84; PULSE 112; TEMP 98.1; BMI 38.0
== END 2020-07-22 15:15 | disposition home or self-care (01) ==
LOC: JER 12:01
DX: M79.661 Pain in right lower leg (principal); M79.662 Pain in left lower leg; U07.1 COVID-19
CPT/HCPCS: 93970-TC; 99284-25

== ENCOUNTER 2020-08-17 08:37 | Emergency (ER) | payer BC ==
[2020-08-17 08:56] VITALS: BMI 35.9
[2020-08-17] MEDS ORDERED: ACETAMINOPHEN INJECTION 100 ML IVPB ONE (11:41)
[2020-08-17 12:00] LABS: BASO % 1.3 % (0-2.0); EOS % 4.6 % (0-4.5); HEMATOCRIT 34.2 % (32.4-45.2); HEMOGLOBIN 11.6 GM/dL (10.7-15.3); LYMPH % 25.7 % (8-40); MCH 29.8 pg (25.7-33.7); MEAN CELL VOLUME 87.6 fl (80-96); MEAN PLT VOLUME 8.7 fl (7.5-11.1); MONO % 7.2 % (3.8-10.2); NEUT % 61.2 % (42.8-82.8); PLATELET COUNT 262 K/MM3 (134-434); RDW 16.8 % (11.6-15.6); WHITE BLOOD COUNT 4.9 K/mm3 (4.0-10.0)
[2020-08-17 12:07] LABS: INR 1.03 (0.83-1.09); PROTHROMBIN TIME (PATIENT) 12.5 SEC (9.7-13.0)
[2020-08-17 12:10] LABS: ACTIVATED PTT 36.2 SECONDS (25.2-36.5)
[2020-08-17] MEDS ORDERED: ACETAMINOPHEN 1000 MG/100 ML VIAL (NON FORMULARY) IVPB ONE (12:10)
[2020-08-17 12:25] LABS: CHLORIDE 107 mmol/L (98-107); POTASSIUM 4.1 mmol/L (3.5-5.1); SODIUM 140 mmol/L (136-145)
[2020-08-17 12:28] LABS: CALCIUM 8.8 mg/dL (8.5-10.1)
[2020-08-17 12:29] LABS: ALBUMIN 3.8 g/dl (3.4-5.0); ANION GAP 7 MMOL/L (8-16); BLOOD UREA NITROGEN 11.1 mg/dL (7-18); CO2 26 mmol/L (21-32); GLUCOSE,RANDOM 77 mg/dL (74-106); MAGNESIUM 2.3 mg/dL (1.8-2.4)
[2020-08-17 12:32] LABS: CREATININE 0.9 mg/dL (0.55-1.3); SGOT/AST 10 U/L (15-37); SGPT/ALT 20 U/L (13-61)
[2020-08-17 12:34] LABS: BILIRUBIN,TOTAL 0.5 mg/dL (0.2-1); TOT PROT 7.6 g/dl (6.4-8.2)
[2020-08-17 12:35] LABS: ALK PHOS 91 U/L (45-117)
[2020-08-17 13:33] VITALS: BP 124/72; PULSE 70; TEMP 98.1
== END 2020-08-17 13:25 | disposition home or self-care (01) ==
LOC: JER 08:37
PROC: 3E0333Z Introduction of Anti-inflammatory into Peripheral Vein, Percutaneous Approach (ICD-10-PCS; principal; 2020-08-17)
DX: R07.9 Chest pain, unspecified (principal)
CPT/HCPCS: 36415; 71046-TC-FY; 76937; 80053; 82550; 83735; 84484; 85025; 85610; 85730; 93005; 93010; 99285-25; J0131

== ENCOUNTER 2020-10-09 17:33 | Emergency (ER) | payer BC ==
[2020-10-09 17:56] VITALS: BP 146/90; PULSE 70; TEMP 98.1; BMI 37.3
[2020-10-09 20:31] LABS: PH,URINE 6.5 (5.0-8.0); URINE APPEARANCE CLEAR; URINE BILIRUBIN NEGATIVE (NEGATIVE); URINE COLOR YELLOW; URINE GLUCOSE (UA) NEGATIVE (NEGATIVE); URINE KETONE NEGATIVE (NEGATIVE); URINE LEUK ESTERASE NEGATIVE (NEGATIVE); URINE NITRITE NEGATIVE (NEGATIVE); URINE PROTEIN NEGATIVE (NEGATIVE); URINE UROBILINOGEN 0.2 mg/dL (0.2-1.0)
[2020-10-09 20:58] LABS: BASO % 1.2 % (0-2.0); EOS % 3.9 % (0-4.5); HEMATOCRIT 35.1 % (32.4-45.2); HEMOGLOBIN 11.7 GM/dL (10.7-15.3); LYMPH % 41.3 % (8-40); MCH 29.7 pg (25.7-33.7); MCHC 33.4 g/dl (32.0-36.0); MEAN CELL VOLUME 88.9 fl (80-96); MEAN PLT VOLUME 9.2 fl (7.5-11.1); MONO % 4.7 % (3.8-10.2); NEUT % 48.9 % (42.8-82.8); PLATELET COUNT 320 K/MM3 (134-434); RBC 3.94 M/mm3 (3.60-5.2); RDW 16.3 % (11.6-15.6); WHITE BLOOD COUNT 5.7 K/mm3 (4.0-10.0)
[2020-10-09] MEDS ORDERED: LACTULOSE 20 GM/30 ML UDC (FOR ORAL USE ONLY) PO ONE (21:08)
[2020-10-09 21:19] LABS: ALBUMIN 3.9 g/dl (3.4-5.0); BLOOD UREA NITROGEN 10.9 mg/dL (7-18); CALCIUM 9.5 mg/dL (8.5-10.1)
[2020-10-09 21:23] LABS: CREATININE 0.9 mg/dL (0.55-1.3)
[2020-10-09 21:24] LABS: BILIRUBIN,TOTAL 0.4 mg/dL (0.2-1); TOT PROT 8.2 g/dl (6.4-8.2)
[2020-10-09] MEDS ORDERED: LACTULOSE 20 GM/30 ML UDC (FOR ORAL USE ONLY) ONE (21:30)
== END 2020-10-10 01:02 | disposition home or self-care (01) ==
LOC: JER 17:33
DX: R51.9 Headache, unspecified (principal); R07.9 Chest pain, unspecified
CPT/HCPCS: 36415; 70450-TC; 71046-TC-FY; 71275-TC; 80053; 81003; 82550; 82553; 84484; 85025; 93005; 93010; 99285-25

== ENCOUNTER 2021-01-11 06:54 | Emergency (ER) | payer BC ==
[2021-01-11 07:05] VITALS: TEMP 98.2; BMI 38.0
[2021-01-11 10:45] LABS: BASO % 0.7 % (0-2.0); EOS % 1.5 % (0-4.5); HEMATOCRIT 28.3 % (32.4-45.2); HEMOGLOBIN 9.6 GM/dL (10.7-15.3); LYMPH % 12.8 % (8-40); MCH 28.7 pg (25.7-33.7); MEAN CELL VOLUME 84.2 fl (80-96); MEAN PLT VOLUME 8.2 fl (7.5-11.1); PLATELET COUNT 360 10^3/uL (134-434); RBC 3.36 M/mm3 (3.60-5.2); RDW 16.1 % (11.6-15.6); WHITE BLOOD COUNT 9.4 K/mm3 (4.0-10.0)
[2021-01-11 10:50] LABS: INR 1.14 (0.83-1.09); PROTHROMBIN TIME (PATIENT) 13.7 SEC (9.7-13.0)
[2021-01-11 10:52] LABS: ACTIVATED PTT 34.2 SECONDS (25.2-36.5)
[2021-01-11 11:03] LABS: CHLORIDE 108 mmol/L (98-107); SODIUM 140 mmol/L (136-145)
[2021-01-11 11:06] LABS: CALCIUM 8.5 mg/dL (8.5-10.1)
[2021-01-11 11:07] LABS: ALBUMIN 2.9 g/dl (3.4-5.0); ANION GAP 9 MMOL/L (8-16); BLOOD UREA NITROGEN 8.5 mg/dL (7-18); CO2 23 mmol/L (21-32); GLUCOSE,RANDOM 89 mg/dL (74-106); MAGNESIUM 2.2 mg/dL (1.8-2.4)
[2021-01-11 11:10] LABS: CREATININE 0.8 mg/dL (0.55-1.3); SGOT/AST 16 U/L (15-37)
[2021-01-11 11:12] LABS: BILIRUBIN,TOTAL 0.4 mg/dL (0.2-1); TOT PROT 7.1 g/dl (6.4-8.2)
[2021-01-11 11:13] LABS: ALK PHOS 94 U/L (45-117)
[2021-01-11 11:17] LABS: SGPT/ALT 17 U/L (13-61)
[2021-01-11 12:24] VITALS: BP 130/74; PULSE 75
[2021-01-11] MEDS ORDERED: MECLIZINE HCL 25 MG TABLET (FP) PO ONE (12:48)
[2021-01-11] MEDS ORDERED: METOCLOPRAMIDE HCL INJECTION 10 MG/2 ML VIAL ONE (12:54)
[2021-01-11] MEDS ORDERED: MECLIZINE HCL 25 MG TABLET (FP) ONE (13:08)
== END 2021-01-11 13:18 | disposition home or self-care (01) ==
LOC: JER 06:54
DX: R42 Dizziness and giddiness (principal); G93.2 Benign intracranial hypertension; D64.9 Anemia, unspecified
CPT/HCPCS: 36415; 70450-TC; 71045-TC-FY; 80053; 82550; 83735; 84439; 84443; 84484; 85025; 85610; 85730; 93005; 93010; 99284-25

== ENCOUNTER 2021-02-17 00:42 | Emergency (ER) | payer BC ==
[2021-02-17 00:59] VITALS: BP 142/91; PULSE 72; TEMP 98.3; BMI 33.0
[2021-02-17] MEDS ORDERED: ACETAMINOPHEN 1000 MG/100 ML VIAL (NON FORMULARY) IVPB ONE (01:27)
[2021-02-17] MEDS ORDERED: ACETAMINOPHEN INJECTION 100 ML IVPB ONE (01:32)
[2021-02-17 02:31] LABS: BASO % 1.1 % (0-2.0); CHLORIDE 108 mmol/L (98-107); EOS % 5.4 % (0-4.5); HEMATOCRIT 33.3 % (32.4-45.2); HEMOGLOBIN 11.3 GM/dL (10.7-15.3); LYMPH % 36.3 % (8-40); MCH 28.9 pg (25.7-33.7); MCHC 33.9 g/dl (32.0-36.0); MEAN CELL VOLUME 85.1 fl (80-96); MEAN PLT VOLUME 8.6 fl (7.5-11.1); MONO % 4.7 % (3.8-10.2); NEUT % 52.5 % (42.8-82.8); PLATELET COUNT 281 10^3/uL (134-434); RBC 3.91 M/mm3 (3.60-5.2); RDW 18.1 % (11.6-15.6); SODIUM 139 mmol/L (136-145); WHITE BLOOD COUNT 5.7 K/mm3 (4.0-10.0)
[2021-02-17 02:33] LABS: CALCIUM 8.6 mg/dL (8.5-10.1)
[2021-02-17 02:34] LABS: ANION GAP 6 MMOL/L (8-16); BLOOD UREA NITROGEN 15.7 mg/dL (7-18); CO2 25 mmol/L (21-32); GLUCOSE,RANDOM 95 mg/dL (74-106); MAGNESIUM 2.1 mg/dL (1.8-2.4)
[2021-02-17 02:37] LABS: CREATININE 1.1 mg/dL (0.55-1.3); SGOT/AST 18 U/L (15-37); SGPT/ALT 19 U/L (13-61)
[2021-02-17 02:39] LABS: BILIRUBIN,TOTAL 0.3 mg/dL (0.2-1); TOT PROT 8.3 g/dl (6.4-8.2)
[2021-02-17 02:40] LABS: ALK PHOS 100 U/L (45-117)
[2021-02-17 03:18] LABS: INR 0.97 (0.83-1.09); PROTHROMBIN TIME (PATIENT) 11.7 SEC (9.7-13.0)
== END 2021-02-17 04:15 | disposition home or self-care (01) ==
LOC: JER 00:42
PROC: 3E0333Z Introduction of Anti-inflammatory into Peripheral Vein, Percutaneous Approach (ICD-10-PCS; principal; 2021-02-17)
DX: M79.602 Pain in left arm (principal)
CPT/HCPCS: 36415; 71046-TC-FY; 80053; 82550; 82553; 83735; 84484; 85025; 85610; 85730; 93005; 93010; 93971; 99285-25; J0131